=== PATIENT | male | born 1960 | race African-American/Black ===

== ENCOUNTER 2017-02-18 07:07 | Outpatient (CLI) | payer MEDICARE ==
[~2017-02-18] VITALS: Ht 162.6 cm; Wt 61.4 kg
--- NOTE | ~2017-02-18 | DS ---
PATIENT:MICHAEL COON :62 MEDICAL RECORD: [id number] DISCHARGE SUMMARY ADMISSION DATE: 02/18/17 DISCHARGE DATE: 02/19/17 DISCHARGE DIAGNOSES: 1. Angina. 2. Coronary artery disease. 3. Percutaneous transluminal coronary angioplasty stent right coronary artery and left circumflex this admission. HOSPITAL COURSE: Mr. Coon presents with angina, found to have critical disease to the RCA and circumflex, underwent successful PTCA stent of above territories, had an uneventful postop course. He was discharged home with the addition of aspirin and Plavix to his medical regimen. We will follow up with [facility] in 1 month. TRANSINT:[id number] Voice Confirmation ID: [id number] DOCUMENT ID: [id number] JENNIFER FOY MD CC: [id number] DICTATION DATE: 02/19/17918 [employer] SALESPERSON: 02/20/17 0056 DEP CLI 02/19/17 [place] [id number] [place] [id number]
--- NOTE | ~2017-02-18 | OP ---
PATIENT NAME: MICHAEL COON MEDICAL RECORD: [id number] :62 LOCATION:D.M2 D.2117 ADMISSION DATE: SURGEON: JENNIFER FOY MD DATE OF OPERATION: 02/19/2017 PROCEDURES: 1. PTCA stent left circumflex. 2. Selective coronary angiography. INDICATIONS: Angina and coronary artery disease. PROCEDURE IN DETAIL: After informed consent was obtained and after detailed explanation of risks, benefits as well as alternative therapies, the patient elected to proceed with angiogram and angioplasty. The left femoral area was prepped and draped in normal sterile fashion. The left femoral artery was cannulated via modified Seldinger technique with placement of 6-Zambian sheath. All catheters exchanged through this sheath. FINDINGS: The left circumflex ramus intermedius is a large vessel with 99% stenosis in the mid vessel. This was addressed with a 2.5 x 26 mm Resolute stent taken to 17 atmospheres. Result was 0% residual stenosis. OVERALL IMPRESSION: Successful percutaneous transluminal coronary angioplasty stent of the left circumflex going from 99% initial stenosis to 0% residual. TRANSINT:[id number] Voice Confirmation ID: [id number] DOCUMENT ID: [id number] JENNIFER FOY MD CC: [id number] DICTATION DATE: 02/19/17919 EXTRUSION FORMER: 02/19/17 1251 REG [facility] [address] [place] [id number]
--- NOTE | ~2017-02-18 | HEMODYNAMI ---
PATIENT:MICHAEL COON MEDICAL RECORD: [id number] : 62 [id number] ADMISSION DATE: 02/18/17 Generatedon:02/19/20179:28 Patient name: MICHAEL COON Patient #: [id number] SSN: : 1960 Date of study: 02/19/2017 Page: Of Hemodynamic Procedure Report Patient Data Patient Demographics Procedure consent was obtained First Name: MICHAEL Gender: Male Last Name: JAYMIE : 1960 [facility] Initial: NALINI Age: 57 year(s) Patient #: [id number] Race: Black Additional ID: [id number] Contact details [address]: [address] [place] [address] State: [place] City: [place] Zip code: [address] Past Medical History Performed procedures and imaging results Date Procedure Procedure Results Comments 01/30/2017 Stress testing Positive->Intermediate Inferior with SPECT MPI risk apically. History of disease Date Diagnosis Comments Renal failure->Dialysis Allergies: No known allergies Admission Admission Data Admission Date: 02/18/2017 Admission Time: 7:07 Room #: D.2117 Height (in.): 64 BSA: 1.67 (m2) Height (cm.): 162.56 BMI: 23.69 (kg/m2) Weight (lbs.): 138 Weight (kg.): 62.6 Lab Results Lab Result Date: 02/18/2017 Lab Result Time: 0:00 Biochemistry Name Units Result Min Max BUN mg/dl 26 --(----)-* 7 18 Creatinine mg/dl 9 --(----)-* 0.6 1.3 CBC Name Units Result Min Max Hematocrit % 36.4 *-(----)-- 42 54 Hemoglobin g/dl 11.1 *-(----)-- 13.5 17.5 Procedure Procedure Types Cath Procedure PCI Procedure Coronary Stent Initial Miscellaneous Procedures Moderate Sedation up to 15 minutes Procedure Description Procedure Date Procedure Date: 02/19/2017 Procedure Start Time: 9:10 Procedure End Time: 9:27 Procedure Staff Name Function Gabriel Moore MD Performing Physician Christian Pradhan RT Scrub Dimple Ruiz RN Nurse Kirk Kearney RT Monitor Procedure Data Cath Procedure Fluoroscopy Diagnostic fluoroscopy Total fluoroscopy Time: 2.8 time: 2.8 min min Diagnostic fluoroscopy Total fluoroscopy dose: 387 dose: 387 mGy mGy Contrast Material Contrast Material Type Amount (ml) Isovue 300 68 Entry Location Entry Primary Successful Side Size Upsize Upsize Entry Closure Succes sful Closure Location (Fr) 1 (Fr) 2 (Fr) Remarks Device Remarks Femoral Left 6 Fr Exoseal artery Short Estimated blood loss: 10 ml Procedure Complications No complications Procedure Medications Medication Administration Route Dosage Oxygen NC 2 l/min Heparin Flush Bag added to field 2 bags (1000units/500ml NS) Lidocaine 2% added to field 20 Zofran I.V. 4 mg Heparin Bolus I.V. 4000 units Versed I.V. 1 mg Fentanyl I.V. 50 mcg Versed I.V. 1 mg Fentanyl I.V. 50 mcg Hemodynamics Rest BSA: 1.67 (m2) HGB: 11.1 (g/dl) O2 Consumption: Estimated: 216.41 (ml/min) O2 Co nsumption indexed: Estimated:129.59 (ml/min/m) Heart Rate: 100 (bpm) Snapshots Pre Cath Intra NCS Post Cath Vital Signs Time Heart Resp SPO2 etCO2 QE5ntgi NIBP (mmHg) Rhythm Pain Sedation Rate (ipm) (%) (mmHg) (mmHg) Status Level (bpm) 8:52:10 92 27 100 0 0 96/86(90) NSR 0 (11) 10(A) , No pain 8:56:16 88 14 100 0 0 98/76(94) NSR 0 (11) 10(A) , No pain 9:01:15 93 19 100 0 0 Measuring NSR 0 (11) 10(A) , No pain 9:01:56 81 16 100 0 0 120/72(105) NSR 0 (11) 10(A) , No pain 9:05:56 93 17 100 0 0 126/96(111) NSR 0 (11) 10(A) , No pain 9:10:55 89 16 100 0 0 Measuring NSR 0 (11) 10(A) , No pain 9:11:19 80 18 100 0 0 179/85(130) NSR 0 (11) 9(A) , No pain 9:15:42 78 16 97 0 0 124/43(86) NSR 0 (11) 9(A) , No pain 9:20:40 91 16 100 0 0 Measuring NSR 0 (11) 10(A) , No pain 9:21:42 76 23 100 0 0 162/45(106) NSR 0 (11) 10(A) , No pain 9:26:14 81 12 0 0 150/53(107) NSR 0 (11) 10(A) , No pain Medications Time Medication Route Dose Verified Delivered Reason Notes Effectiveness by by 8:51:03 Oxygen NC 2 Gabriel Dimple Per physician l/min Teresa Ruiz RN 8:51:16 Heparin Flush added 2 Gabriel Gabriel used for Bag to bags Teresa Moore MD procedure (1000units/500ml field NS) 8:51:25 Lidocaine 2% added 20ml Gabriel Gabriel used for to vial Teresa Moore MD procedure field 8:51:33 Zofran I.V. 4 mg Gabriel Dimple Per physician Teresa Ruiz RN 9:07:22 Versed I.V. 1 mg Gabriel Dimple for anxiety Teresa Ruzi RN 9:07:36 Fentanyl I.V. 50 Gabriel Dimple for sedation mcg Teresa Ruiz RN 9:10:00 Versed I.V. 1 mg Gabriel Dimple for sedation Teresa Ruiz RN 9:10:32 Fentanyl I.V. 50 Gabriel Dimple for sedation mcg Teresa Ruiz RN 9:11:07 Heparin Bolus I.V. 4000 Gabriel Dipmle for dose units Teresa Ruiz RN anticoagulation verified with dr moore Procedure Log Time Note 8:26:52 Patient Height : 64 cm 8:26:58 Time tracking: Regular hours 8:27:02 Plan of Care:Hemodynamics will remain stable., Cardiac rhythm will remain stable., Comfort level will be maintained., Respiratory function will remain adequate., Patient/ family verbilizes understanding of procedure., Procedure tolerated without complication., Recovers from procedure without complications.. 8:30:51 Christian Pradhan RT(R) sent for patient. Start room use. 8:30:52 Patient Weight : 138 kg 8:41:57 Patient received from PCU to CCL 1 Alert and oriented. Tansferred to table in Supine position. 8:41:58 Warm blankets applied, and tamara hugger turned on for patient comfort. 8:41:59 Correct patient and procedure confirmed by team. 8:42:00 Signed procedure consent form obtained from patient. 8:42:01 ECG and BP/O2 sat monitors applied to patient. 8:50:54 Vital chart was started 8:51:03 Oxygen 2 l/min NC was administered by Dimple Ruiz RN; Per physician; 8:51:16 Heparin Flush Bag (1000units/500ml NS) 2 bags added to field was administered by Gabriel Moore MD; used for procedure; 8:51:25 Lidocaine 2% 20ml vial added to field was administered by Gabriel Moore MD; used for procedure; 8:51:33 Zofran 4 mg I.V. was administered by Dimple Ruiz RN; Per physician; 8:57:58 Baseline sample Acquired. 8:58:10 Rhythm: sinus tachycardia 8:58:28 H&P Date Dictated: 01/22/2017 Within 30 days and on chart.. 8:58:29 Pre-procedure instructions explained to patient. 8:58:30 Pre-op teaching completed and patient verbalized understanding. 8:58:36 Family unavailable. 8:58:45 Patient allergic to No known allergies 8:58:47 Is the patient allergic to Iodine/contrast media? No. 8:58:49 Is patient on blood thinner?Yes 8:58:52 ACC The patient was administered the following blood thiners within the last 24 hours: ACCPlavix 8:59:31 Patient diabetic? Yes. 8:59:33 If diabetic: On Metformin? No 8:59:35 Previous problem with sedation/anesthesia? No ? 8:59:36 Snore? Yes 8:59:37 Sleep apnea? Yes 8:59:38 Deviated septum? No 8:59:39 Opens mouth fully? Yes 8:59:40 Sticks out tongue? Yes 8:59:42 Airway obstruction? No ? 8:59:48 Dentures? No ? 8:59:54 Pre procedure: left dorsailis pedis pulse 1+ Palpable, but thready & weak; easily obliterated 8:59:57 Patient pain scale 0/10 ?. 9:00:02 IV patent on arrival in left forearm with 0.9% NaCl at [facility]. 9:00:37 Lab Result : Creatinine 9 mg/dl 9:00:37 Lab Result : BUN 26 mg/dl 9:00:37 Lab Result : Hemoglobin 11.1 g/dl 9:00:37 Lab Result : Hematocrit 36.4 % 9:00:40 Lab results completed and on chart. 9:00:47 Left groin area was prepped with chlora-prep and draped in sterile fashion 9:00:49 Alarms reviewed by R. N. 9:00:50 Sharps counted by scrub and verified by R.N. 9:00:56 Use device set Femoral PCI 9:00:57 Tegaderm 4 x 4 opened to sterile field. 9:00:58 Acist Manifold opened to sterile field. 9:00:59 Acist Syringe opened to sterile field. 9:01:00 Acist Hand Control opened to sterile field. 9:01:00 Bag Decanter opened to sterile field. 9:01:01 Medline Cath Pack opened to sterile field. 9:01:01 Terumo 6Fr [place] Sheath opened to sterile field. 9:01:04 St Vin 260cm J .035 wire opened to sterile field. 9:01:04 Merit BasixCompak Inflation Kit opened to sterile field. 9:01:10 Trimble Whisper J 300cm 0.014 guide wire opened to sterile field. 9:06:56 Zero performed for pressure channel P1 9:07:08 --------ALL STOP TIME OUT------ 9:07:09 Final Timeout: patient, procedure, and site verified with staff and physician. All members of the team are in agreement. 9:07:11 Left groin site verified by team. 9:07:15 Physical assessment completed. ASA score P 2 - A patient with mild systemic disease as per Gabriel Moore MD. 9:07:21 Sedation plan: IV Moderate Sedation Versed, Fentanyl 9:07:22 Versed 1 mg I.V. was administered by Dimple Ruiz RN; for anxiety; 9:07:36 Fentanyl 50 mcg I.V. was administered by Dimple Ruiz RN; for sedation; 9:10:00 Versed 1 mg I.V. was administered by Dimple Ruiz RN; for sedation; 9:10:32 Fentanyl 50 mcg I.V. was administered by Dimple Ruiz RN; for sedation; 9:10:33 Cordis 6FR XBLAD 4.0 guide catheter opened to sterile field. ::38 Procedure started. ::38 Full Disclosure recording started 9::42 Local anesthetic to left femerol artery with Lidocaine 2% by Gabriel Moore MD.INITIAL ACCESS ONLY 9:11:06 A 6 Fr Short sheath was inserted into the Left Femoral artery 9:11:07 Heparin Bolus 4000 units I.V. was administered by Dimple Ruiz RN; for anticoagulation; dose verified with dr moore 9:11:18 6 Fr XBLAD 4 guide catheter was inserted over the wire 9:12:58 Whisper wire advanced. 9:13:33 Wire advanced across lesion. 9:13:38 Inflation number: 1 A [place] Molcure Stone 2.5 X 15 balloon was prepped and advanced across the Mid CX, then inflated to 13 BRANDEE for 0:10 (min:sec). 9:13:50 Multiple inflations made at 13 Atms. 9:14:09 Balloon removed over the wire. 9:15:52 Inflation Number: 2 A Medtronic Resolute 2.5 X 26 stent was prepped and advanced across the Mid CX. The stent was deployed at 17 BRANDEE for 0:10 (min:sec). 9:16:12 Stent catheter was removed intact over wire. 9:16:13 Wire removed. 9:16:13 Guide catheter removed. 9:16:22 Cordis 6Fr Exoseal opened to sterile field. 9:17:39 Sheath removed intact; hemostasis achieved with Exoseal to the Left Femoral artery. 9::42 Procedure ended.(Physican Out) 9:19:16 Fluoroscopy time 02.80 minutes. 9:19:19 Fluoroscopy dose: 387 mGy 9:19: Flurop Dose total: 387 9:19:24 Contrast amount:Isovue 300 68ml. 9:19: Sharps counted by scrub and verified by R.N. 9:19:31 Post-op/insertion site Left Femoral artery dressed using a 4 x 4 and Tegaderm. 9:19:43 Post left femerol artery:bleeding 9:20:02 Femstop placed over the left femerol artery at 150 mmHg. Hemostasis achieved. 9:20:15 St Vin Femstop Arch Gold opened to sterile field. 9:24:13 Post-procedure physical assessment completed. ASA score P 2 - A patient with mild systemic disease as per Gabriel Moore MD. 9:24:16 Post procedure rhythm: unchanged. 9:24:19 Estimated blood loss: 10 ml 9:24:21 Post procedure instruction explained to patient.Patient verbalizes understanding. 9:24:22 Patient needs reinforcement of post procedure teaching. 9:24:29 Procedure type changed to Cath procedure, PCI procedure, Coronary Stent Initial, Miscellaneous Procedures, Moderate Sedation up to 15 minutes 9:24:32 Procedure Complication : No complications 9:25:23 Procedure and supply charges have been captured, reviewed, submitted and are correct. 9:27:16 Vital chart was stopped 9:27:17 See physician's report for complete and final results. 9:27:21 Report given to PCU. 9:27:24 Patient transfered to PCU with Bed. 9:27:27 Procedure ended. 9:27:27 Full Disclosure recording stopped 9:27:44 End room use (Document Last) Intervention Summary Intervention Notes Time ActionType Lesion and Equipment Action# Pressure Duration Attributes Used 9:13:38 Inflate Mid CX [place] 1 13 00:10 balloon Sci Stone 2.5 X 15 balloon 9:15:52 Place stent Mid CX Medtronic 2 17 00:10 Resolute 2.5 X 26 stent Device Usage Item Name Manufacture Quantity Catalog Number Hospital Part Current Mini [facility] Lot# / Charge Number Stock Stock Serial# Code Tegaderm 4 3M 1 [id number] 5 x 4 Acist Acist 1 75350 477874 150312 100769 5 Manifold Medical Systems Inc Acist Acist 1 18177 297168 524836 905921 20 Syringe Medical Systems Inc Acist Hand Acist 1 45935 761173 650593 295884 5 Control Medical Systems Inc Bag Microtek 1 2002S 314866 54703 217776 5 AutoShag. Medline Cardinal 1 [id number] 793703 89076 434915 5 Cath Pack Health Terumo 6Fr Terumo 1 [id number] 596730 756986 885374 [address] [place] [address] Vin St Vin 1 439161 386639 729936 877010 30 260cm J .035 wire Merit Merit 1 [id number] 289563 558580 123266 15 BasixCompak Medical Inflation Kit Trimble Trimble 1 [id number] 838672 712361 390757 5 Whisper J Vascular 300cm 0.014 guide wire Cordis 6FR Cardinal 1 [id number] 263203 139022 866346 3 XBLAD 4.0 Health guide catheter [place] Sci [place] 1 [id number] 207768 195319 075292 1 CDNetworks 2.5 X 15 balloon Medtronic Medtronic 1 [id number] 656038 687488 0 [id number] Resolute 2.5 X 26 stent Cordis 6Fr Cardinal 1 [id number] 166037 368894 656294 [address] St Vin 1 [id number] 087869 902103 958790 5 Femstop Arch Gold Signature Audit [place] Stage Time Signature Unsigned Intra-Procedure 02/19/2017 Kirk Kearney 9:27:59 AM RT(R) Signatures Monitor : Kirk Kearney RT Signature : Date : Time : [place] [id number] [place] [address]
--- NOTE | ~2017-02-18 | HEMODYNAMI ---
PATIENT:MICHAEL COON MEDICAL RECORD: [id number] : 62 LOCATION:[facility] ADMISSION DATE: 02/18/17 Generatedon:02/18/201711:19 Patient name: MICHAEL COON Patient #: [id number] SSN: : 1960 Date of study: 02/18/2017 Page: Of Hemodynamic Procedure Report Patient Data Patient Demographics Procedure consent was obtained First Name: MICHAEL Gender: Male Last Name: JAYMIE : 1960 [facility] Initial: NALINI Age: 57 year(s) Patient #: [id number] Race: Black Additional ID: [id number] Contact details [address]: [address] [place] [address] State: [place] City: [place] Zip code: [address] Past Medical History Performed procedures and imaging results Date Procedure Procedure Results Comments 01/30/2017 Stress testing Positive->Intermediate Inferior with SPECT MPI risk apically. History of disease Date Diagnosis Comments Renal failure->Dialysis Allergies: No known allergies Admission Admission Data Admission Date: 02/18/2017 Admission Time: 7:07 Height (in.): 64 BSA: 1.67 (m2) Height (cm.): 162.56 BMI: 23.69 (kg/m2) Weight (lbs.): 138 Weight (kg.): 62.6 Procedure Procedure Types Cath Procedure Diagnostic Procedure [facility] w/Coronaries PCI Procedure Coronary Stent Initial Miscellaneous Procedures Moderate Sedation up to 30 minutes Procedure Description Procedure Date Procedure Date: 02/18/2017 Procedure Start Time: 10:42 Procedure End Time: 11:18 Procedure Staff Name Function Gabriel Moore MD Performing Physician Candy Sheikh RT Scrub Eloy Groves RN Nurse Kong Camara RT Monitor Procedure Data Cath Procedure Fluoroscopy Diagnostic fluoroscopy Total fluoroscopy Time: 6.7 time: 6.7 min min Diagnostic fluoroscopy Total fluoroscopy dose: dose: 296.38 mGy 296.38 mGy Contrast Material Contrast Material Type Amount (ml) Isovue 300 112 Entry Location Entry Primary Successful Side Size Upsize Upsize Entry Closure Succes sful Closure Location (Fr) 1 (Fr) 2 (Fr) Remarks Device Remarks Femoral Right 5 Fr 6 Fr 7 Fr Exoseal artery Short Short Estimated blood loss: 10 ml Diagnostic catheters Device Type Used For End Catheter Placement Medtronic Dexterity 5Fr Procedure Pigtail catheter (NO CHARGE) Medtronic Dexterity 5Fr Procedure JL 4.0 catheter (NO CHARGE) Medtronic Dexterity 5Fr Procedure 3DRC catheter (NO CHARGE) Procedure Medications Medication Administration Route Dosage Oxygen NC 2 l/min Heparin Flush Bag added to field 2 bags (1000units/500ml NS) 0.9% NaCl I.V. 100 ml/hr Fentanyl I.V. 50 mcg Versed I.V. 1 mg Fentanyl I.V. 50 mcg Versed I.V. 1 mg Heparin Bolus I.V. 4000 units Integrilin (Bolus I.V. 5.6 ml 2mg/ml) Integrilin (Bolus wasted 4.4 ml 2mg/ml) Hemodynamics Rest BSA: 1.67 (m2) O2 Consumption: Estimated: 195.42 (ml/min) O2 Consumption indexed : Estimated:117.02 (ml/min/m) Heart Rate: 67 (bpm) Pressure Samples Time Site Value (mmHg) Purpose Heart Use Rate(bpm) 10:46 AO 72/20(23) Snapshot 56 10:46 AO 110/61(82) Snapshot 67 10:49 AO 118/51(75) Snapshot 66 10:52 AO 107/23(54) Snapshot 71 10:55 AO 113/34(51) Snapshot 69 10:57 AO 97/48(62) Snapshot 68 10:58 AO 95/37(56) Snapshot 74 10:58 AO 113/53(75) Snapshot 69 10:59 AO 128/54(77) Snapshot 77 11:00 AO 109/58(78) Snapshot 68 Snapshots Pre Cath Intra NCS Post Cath Vital Signs Time Heart Resp SPO2 NIBP (mmHg) Rhythm Pain Sedation Rate (ipm) (%) Status Level (bpm) 10:20:54 63 18 99 126/77(94) NSR 0 (11) 10(A) , No pain 10:33:28 69 20 99 130/114(127) NSR 0 (11) 10(A) , No pain 10:51:33 66 18 100 119/25(83) NSR 0 (11) 9(A) , No pain 10:57:34 73 18 100 113/53(75) NSR 0 (11) 9(A) , No pain 11:05:43 57 19 100 107/81(100) NSR 0 (11) 9(A) , No pain 11:10:43 77 13 100 Measuring NSR 0 (11) 9(A) , No pain 11:12:06 175 15 Time NSR 0 (11) 9(A) Exceeded , No pain 11:16:35 61 8 100 108/75(91) NSR 0 (11) 9(A) , No pain Medications Time Medication Route Dose Verified Delivered Reason Notes Effectiveness by by 10:24:17 Oxygen NC 2 Eloy Eloy Per physician l/min Germain Groves RN RN 10:24:26 Heparin Flush added 2 Eloy Eloy used for Bag to bags Germain Groves RN procedure (1000units/500ml field RN NS) 10:24:36 0.9% NaCl I.V. 100 Eloy Eloy Per physician ml/hr Germain Groves RN RN 10:36:34 Fentanyl I.V. 50 Eloy Eloy for sedation mcg Germain Groves RN RN 10:36:43 Versed I.V. 1 mg Eloy Eloy for sedation Germain Groves RN RN 10:44:39 Fentanyl I.V. 50 Eloy Eloy for sedation mcg Germain Groves RN RN 10:44:41 Versed I.V. 1 mg Eloy Eloy for sedation Germain Groves RN RN 10:50:39 Heparin Bolus I.V. 4000 Eloy Eloy for units Germain Groves RN anticoagulation RN 10:50:55 Integrilin I.V. 5.6 Eloy Eloy for (Bolus 2mg/ml) ml Germain Groves RN antiplatelet RN therapy 10:51:06 Integrilin wasted 4.4 Eloy Eloy for (Bolus 2mg/ml) ml Germain Groves RN antiplatelet RN therapy Procedure Log Time Note 10:01:09 Eloy Groves RN sent for patient. Start room use. 10:07:10 Time tracking: Regular hours 10:07:13 Plan of Care:Hemodynamics will remain stable., Cardiac rhythm will remain stable., Comfort level will be maintained., Respiratory function will remain adequate., Patient/ family verbilizes understanding of procedure., Procedure tolerated without complication., Recovers from procedure without complications.. 10:11:25 Patient Height : 162.56 cm 10:11:48 Patient Weight : 62.6 kg 10:12:12 Patient received from Pre/Post Procedure Room to CCL 3 Alert and oriented. Tansferred to table in Supine position. 10:12:13 Warm blankets applied, and tamara hugger turned on for patient comfort. 10:12:14 Correct patient and procedure confirmed by team. 10:12:15 Signed procedure consent form obtained from patient. 10:12:16 ECG and BP/O2 sat monitors applied to patient. 10:12:24 H&P Date Dictated: 01/22/2017 Within 30 days and on chart., H&P Addendum completed by physician on day of procedure. (MUST COMPLETE FOR ALL OUTPATIENTS). 10:12:24 Pre-procedure instructions explained to patient. 10:12:25 Pre-op teaching completed and patient verbalized understanding. 10:12:26 Family in waiting room. 10:12:28 Patient NPO since Midnight. 10:12:32 Patient allergic to No known allergies 10:12:34 Is the patient allergic to Iodine/contrast media? No. 10:19:26 Vital chart was started 10:21:46 Baseline sample Acquired. 10:21:49 Rhythm: sinus rhythm 10:21:50 Full Disclosure recording started 10:21:52 Is patient on blood thinner?No 10:21:53 Patient diabetic? Yes. 10:21:54 If diabetic: On Metformin? No 10:24:17 Oxygen 2 l/min NC was administered by Eloy Groves RN; Per physician; 10:24:26 Heparin Flush Bag (1000units/500ml NS) 2 bags added to field was administered by Eloy Groves RN; used for procedure; 10:24:36 0.9% NaCl 100 ml/hr I.V. was administered by Eloy Groves RN; Per physician; 10:27:47 Vital chart was stopped 10:27:48 Vital chart was started 10:28:02 Previous problem with sedation/anesthesia? No ? 10:28:02 Snore? Yes 10:28:03 Sleep apnea? Yes 10:28:04 Deviated septum? No 10:28:05 Opens mouth fully? Yes 10:28:06 Sticks out tongue? Yes 10:28:07 Airway obstruction? No ? 10:28:09 Dentures? No ? 10:28:13 Pre procedure: right dorsailis pedis pulse 1+ Palpable, but thready & weak; easily obliterated 10:28:16 Patient pain scale 0/10 ?. 10:28:30 IV patent on arrival in left forearm with 0.9% NaCl at [facility]. 10:29:46 Lab results completed and on chart. 10::49 Right groin area was prepped with chlora-prep and draped in sterile fashion 10::50 Alarms reviewed by R. N. 10::51 Sharps counted by scrub and verified by R.N. 10:29:54 Use device set Femoral Dx 10:29:55 Tegaderm 4 x 4 opened to sterile field. 10:29:56 Acist Manifold opened to sterile field. 10:29:56 Acist Hand Control opened to sterile field. 10:29:57 Acist Syringe opened to sterile field. 10:29:58 Bag Decanter opened to sterile field. 10:29:58 Medline Cath Pack opened to sterile field. 10:29:59 Terumo 5Fr [place] Sheath opened to sterile field. 10:29:59 St Vin 260cm J .035 wire opened to sterile field. 10:31:51 Vital chart was stopped 10::53 Vital chart was started 10:34:25 Zero performed for pressure channel P1 10:36:23 Physician arrived 10:36:23 --------ALL STOP TIME OUT------ 10:36:23 Final Timeout: patient, procedure, and site verified with staff and physician. All members of the team are in agreement. 10:36:25 Right groin site verified by team. 10:36:27 Physical assessment completed. ASA score P 2 - A patient with mild systemic disease as per Gabriel Moore MD. 10:36:32 Sedation plan: IV Moderate Sedation Versed, Fentanyl 10:36:34 Fentanyl 50 mcg I.V. was administered by Eloy Groves RN; for sedation; 10:36:43 Versed 1 mg I.V. was administered by Eloy Groves RN; for sedation; 10:41:56 Procedure started. 10:42:00 Local anesthetic to right femoral artery with Lidocaine 2% by Gabriel Moore MD.INITIAL ACCESS ONLY 10:42:16 Zero performed for pressure channel P1 10:42:20 Zero performed for pressure channel P1 10:42:23 Zero performed for pressure channel P1 10:42:25 Zero performed for pressure channel P1 10:42:54 A 5 Fr sheath was inserted into the Right Femoral artery 10:44:35 A Medtronic Dexterity 5Fr Pigtail catheter (NO CHARGE) was advanced over the wire and used for Procedure. 10:44:39 Fentanyl 50 mcg I.V. was administered by Eloy Groves RN; for sedation; 10:44:41 Versed 1 mg I.V. was administered by Eloy Groves RN; for sedation; 10:45:28 LV gram done using MORA 10:45:30 Injector settings: Ml/sec: 10, Volume: 20, 10:45:41 EF : 50 % 10:45:42 Catheter removed. 10:46:08 A Medtronic Dexterity 5Fr JL 4.0 catheter (NO CHARGE) was advanced over the wire and used for Procedure. 10:46:41 Clean PET BasixCompak Inflation Kit opened to sterile field. 10:46:42 Trimble Whisper J 300cm 0.014 guide wire opened to sterile field. 10:46:51 LCA angiography performed. 10:47:37 Catheter removed. 10:48:00 Terumo 6Fr [place] Sheath opened to sterile field. 10:48:18 A Medtronic Dexterity 5Fr 3DRC catheter (NO CHARGE) was advanced over the wire and used for Procedure. 10:48:23 RCA angiography performed. 10:48:28 Catheter removed. 10:49:09 Sheath upsized to a 6 Fr Short. 10:49:56 Medtronic Launcher 6Fr AR 2.0 SH guide catheter opened to sterile field. 10:50:04 6 Fr AR 2 SH guide catheter was inserted over the wire 10:50:07 Akademosisper wire advanced. 10:50:39 Heparin Bolus 4000 units I.V. was administered by Eloy Groves RN; for anticoagulation; 10:50:52 Wire advanced across lesion. 10:50:55 Integrilin (Bolus 2mg/ml) 5.6 ml I.V. was administered by Eloy Groves RN; for antiplatelet therapy; 10:51:06 Integrilin (Bolus 2mg/ml) 4.4 ml wasted was administered by Eloy Groves RN; for antiplatelet therapy; 10:52:00 The Promus Premier OTW 3.0 x 28 stent was advanced then removed because of failure to cross lesion 10:52:03 Wire removed. 10:52:10 Guide Catheter removed. unable to get back-up support 10:52:18 Terumo 7Fr [place] Sheath opened to sterile field. 10:52:27 Medtronic Launcher 7Fr AR 2.0 SH guide catheter opened to sterile field. 10:52:35 Sheath upsized to a 7 Fr Short. 10:52:42 7 Fr AR 2 SH guide catheter was inserted over the wire 10:53:07 Guide Catheter removed. unable to get back-up support 10:53:14 Arrow 7Fr 45cm Sheath opened to sterile field. 10:53:45 Upsized to a 7 Fr. 45 cm Arrow sheath. 10:55:44 Marion Sci Choice PT Extra Support J 300cm .014 gu opened to sterile field. 10:55:56 Medtronic Launcher 7Fr AR 2.0 SH guide catheter opened to sterile field. 10:56:30 7 Fr AR 2 SH guide catheter was inserted over the wire 10:56:48 pt ES wire advanced. 10:57:06 Wire advanced across lesion. 10:57:09 Inflation number: 1 A Marion Sci Morovis 3.0 X 20 balloon was prepped and advanced across the Mid RCA, then inflated to 13 BRANDEE for 0:10 (min:sec). 10:57:21 Inflation number: 2 The Marion Sci Morovis 3.0 X 20 balloon was reinflated across the Mid RCA, to 17 BRANDEE for 0:10 (min:sec). 10:57:31 Inflation number: 3 The Marion Sci Morovis 3.0 X 20 balloon was reinflated across the Mid RCA, to 17 BRANDEE for 0:10 (min:sec). 10:58:05 Balloon removed over the wire. 10:59:04 Inflation Number: 4 A Promus Premier OTW 3.0 x 28 stent was prepped and advanced across the Mid RCA. The stent was deployed at 17 BRANDEE for 0:10 (min:sec). 11:00:17 Inflation number: 5 The stent balloon was then re-inflated across the Mid RCA to 21 BRANDEE for 0:10 (min:sec). 11:00:53 Stent catheter was removed intact over wire. 11:01:19 Wire removed. 11:01:19 Guide catheter removed. 11:01:37 Sheath downsized to a 7 Fr. Short. 11:01:51 Cordis 7Fr Exoseal opened to sterile field. 11:03:19 Stent catheter was removed intact over wire. 11:03:20 Wire removed. 11:03:20 Guide catheter removed. 11:04:02 Sheath removed intact; hemostasis achieved with Exoseal to the Right Femoral artery. 11:04:03 Procedure ended.(Physican Out) 11:04:52 Fluoroscopy time 06.70 minutes. 11:05:26 Fluoroscopy dose: 296.38 mGy 11:05:26 Flurop Dose total: 296.38 11:05:32 Contrast amount:Isovue 300 112ml. 11:05:33 Sharps counted by scrub and verified by R.N. 11:05:36 Insertion/operative site no bleeding no hematoma. 11:05:38 Post-op/insertion site Right Femoral artery dressed using a 4 x 4 and Tegaderm. 11:05:42 Post right femoral artery:stable, soft, clean and dry 11:05:43 Post Procedure Pulses reassessed and unchanged 11:05:45 Post-procedure physical assessment completed. ASA score P 2 - A patient with mild systemic disease as per Gabriel Moore MD. 11:05:47 Post procedure rhythm: unchanged. 11:05:57 Estimated blood loss: 10 ml 11:05:59 Post procedure instruction explained to patient.Patient verbalizes understanding. 11:05:59 Patient needs reinforcement of post procedure teaching. 11:06:49 Procedure type changed to Cath procedure, Diagnostic procedure, LHC, LHC w/Coronaries, PCI procedure, Coronary Stent Initial, Miscellaneous Procedures, Moderate Sedation up to 30 minutes 11:06:50 Procedure and supply charges have been captured, reviewed, submitted and are correct. 11:13:11 Femstop placed over the right femoral artery at 135 mmHg. Hemostasis achieved. 11:18:37 See physician's report for complete and final results. 11:18:38 Report given to Pre/Post Procedure Room. 11:18:40 Patient transfered to Pre/Post Procedure Room with Stretcher. 11:18:43 Procedure ended. 11:18:43 Full Disclosure recording stopped 11:19:02 End room use (Document Last) 11:19:30 Vital chart was stopped Intervention Summary Intervention Notes Time ActionType Lesion and Equipment Action# Pressure Duration Attributes Used 10:52:00 Discard Promus Stent Premier OTW 3.0 x 28 stent 10:57:09 Inflate Mid RCA Marion 1 13 00:10 balloon Sci Morovis 3.0 X 20 balloon 10:57:21 Reinflate Mid RCA Marion 2 17 00:10 balloon Sci Morovis 3.0 X 20 balloon 10:57:31 Reinflate Mid RCA Marion 3 17 00:10 balloon Sci Morovis 3.0 X 20 balloon 10:59:04 Place stent Mid RCA Promus 4 17 00:10 Premier OTW 3.0 x 28 stent 11:00:17 Reinflate Mid RCA Promus 5 21 00:10 stent Premier balloon OTW 3.0 x 28 stent Device Usage Item Name Manufacture Quantity Catalog Number Hospital Part Current Mini [facility] Lot# / Charge Number Stock Stock Serial# Code Tegade 4 1 [id number] [id number] [id number] 5 x 4 Acist Acist 1 74310 909963 480447 545594 5 Manifold Medical Systems Inc Acist Hand Acist 1 60643 782174 322964 204187 5 Control Medical Systems Inc Acist Acist 1 69093 533117 378453 479418 20 Syringe Medical Systems Inc Bag Microtek 1 2002S 087287 93632 675130 5 DecNudipay Mobile Payment Medical Inc. Medline Cardinal 1 [id number] 554354 24640 582666 5 Cath Pack Health Terumo 5Fr Terumo 1 [id number] 749466 576429 985330 [address] Vin St Vin 1 [id number] 212916 110348 703625 30 260cm J .035 wire Medtronic Medtronic 1 [id number] 492399 388026 5 Dexterity 5Fr Pigtail catheter (NO CHARGE) Medtronic Medtronic 1 [id number] 521384 839231 5 Dexterity 5Fr JL 4.0 catheter (NO CHARGE) Merit Merit 1 [id number] 433772 263205 719821 15 BasPearl Therapeutics Medical Inflation Kit Trimble Trimble 1 [id number] 889375 375479 942007 5 Whisper J Vascular 300cm 0.014 guide wire Medtronic Medtronic 1 [id number] 122649 165559 5 Dexterity 5Fr 3DRC catheter (NO CHARGE) Medtronic Medtronic 1 [id number] 284997 81291 052137 1 Launcher 6Fr AR 2.0 SH guide catheter Promus Marion 1 [id number] 841178 133551 5 [id number] Premier OTW Scientific 3.0 x 28 stent Terumo 7Fr Terumo 1 [id number] 011904 942979 761218 5 [place] Sheath Medtronic Medtronic 2 [id number] 508068 978121 756883 0 Launcher 7Fr AR 2.0 SH guide catheter Arrow 7Fr Teleflex 1 [id number] 273990 077097 029373 1 45cm Sheath Marion Sci Marion 1 [id number] 461113 678684 268261 5 Choice PT Scientific Extra Support J 300cm .014 gu Marion Sci Marion 1 [id number] 575675 671738 569539 1 [id number] Zomazz Scientific 3.0 X 20 balloon Terumo 6Fr Terumo 1 [id number] 362789 089363 067507 40 [place] Sheath Cordis 7Fr Cardinal 1 [id number] 712018 020976 901686 5 [facility] Health Signature Audit [place] Stage Time Signature Unsigned Intra-Procedure 02/18/2017 Kong Camara 11:19:22 AM RT(R) Signatures Monitor : Kong Camara RT Signature : Date : Time : [facility] [address] [place] [address]
--- NOTE | ~2017-02-18 | OP ---
PATIENT NAME: MICHAEL COON MEDICAL RECORD: [id number] :62 LOCATION:D.CAT ADMISSION DATE: SURGEON: JENNIFER FOY MD DATE OF OPERATION: 02/18/2017 PROCEDURES: 1. PTCA stent, RCA. 2. Left heart catheterization. 3. Selective coronary angiography. 4. Left ventriculogram. INDICATIONS: Angina and coronary artery disease. PROCEDURE IN DETAIL: After informed consent was obtained and after detailed explanation of risks, benefits as well as alternative therapies, the patient elected to proceed with angiogram and angioplasty. The right femoral area was prepped and draped in normal sterile fashion. The right femoral artery was cannulated via modified Seldinger technique with placement of 7-Honduran sheath. All catheters exchanged through this sheath. FINDINGS: The left ventriculogram was performed in standard 30-degree MORA view, reveals good cardiac wall motion throughout all segments. Overall ejection fraction 70%. SELECTIVE CORONARY ANGIOGRAPHY: 1. Left main showed no significant angiographic disease. 2. Left anterior descending has moderate irregularities, but no flow-limiting stenosis. 3. The left circumflex has a 95% stenosis. 4. The right coronary has a 95% stenosis. PTCA STENT OF THE RIGHT CORONARY: The stent used is a 3.0 x 28 mm Promus. Result was 0% residual stenosis. OVERALL IMPRESSION: Successful percutaneous transluminal coronary angioplasty stent of the right coronary artery going from 95% initial stenosis to 0% residual. PLAN: PTCA stent of the left circumflex in the a.m. TRANSINT:[id number] Voice Confirmation ID: [id number] DOCUMENT ID: [id number] JENNIFER FOY MD CC: [id number] DICTATION DATE: 02/18/17 1108 PAPIER MACHE' MOLDER: 02/18/17 1155 [facility] [address] [place] [address]
[~2017-02-18 07:07] MED LIST: AMBIEN10 MG PO; MIDODRINE HCL5 MG PO; NITROQUICK0.4 MG SL; OMEPRAZOLE40 MG PO; PLAVIX75 MG PO; REGLAN5 MG PO; REQUIP0.5 MG PO; SENSIPAR60 MG PO; TESSALON PERLE100 MG PO; ZANAFLEX4 MG PO
[2017-02-18] MEDS ORDERED: HYDROCODONE-APA1 TAB PO (08:18)
[2017-02-18] MEDS ORDERED: HYDROCODON-ACE1 EAC7 PO (08:18)
[2017-02-18] MEDS ORDERED: FLORINEF 0.1 M0.1 MG PO (08:19)
[2017-02-18 08:24] VITALS: BP 153/51; BMI 23.4
[2017-02-18 10:10] LABS: BASOPHILS 0.2 % (0-2); EOSINOPHILS 2.3 % (0-7); HEMATOCRIT 36.4 % (42.0-54.0); HEMOGLOBIN 11.1 g/dL (13.5-17.5); IMMATURE GRANULOCYTES 0.2 % (0-5); LYMPHOCYTES 32.8 % (15-50); MCH 24.4 pg (26.0-34.0); MCHC 30.5 g/dL (31.0-37.0); MCV 80.2 fL (80.0-100.0); MEAN PLATELET VOLUME 10.2 fL (7.4-10.4); MONOCYTES 7.9 % (2-11); NEUTROPHILS 56.6 % (40-80); PLATELET COUNT 193 10x3/uL (130-400); RBC 4.54 10x6/uL (4.20-6.10); RDW 15.5 % (11.5-14.5); WBC 4.8 10x3/uL (4.8-10.8)
[2017-02-18 10:30] LABS: ANION GAP 14.8 mmol/L (8-16); CALCIUM 10.2 mg/dL (8.5-10.1); CARBON DIOXIDE 28.1 mmol/L (21.0-32.0); POTASSIUM - SERUM 3.9 mmol/L (3.5-5.1)
--- NOTE | 2017-02-18 11:52 | NUR ---
1145-RIGHT GROIN WITH FEMSTOP IN PLACE, MOVING IN BED-INSTRUCTED TO KEEP HEAD DOWN AND RIGHT LEG STRAIGHT-NOT COMPLIANT. C/O PAIN- NEW ORDER.
--- NOTE | 2017-02-18 12:41 | NUR ---
1215-CONTINUES TO MOVE IN THE BED, RIGHT GROIN CDI, NO HEMATOMA OR BLEEDING.
--- NOTE | 2017-02-18 13:00 | NUR ---
[address] WITH PATIENT RESTLESS AND MOVING VSS WITH NOC SANDWICH AND SODA TO BEDSIDE
--- NOTE | 2017-02-18 16:59 | NUR ---
1654-REPORT CALLED TO JENNIFER GARVEY. RIGHT GROIN STABLE, RESTING, TRANSPORT VIA STRETCHER, IV INTACT AND PATENT.
--- NOTE | 2017-02-18 17:27 | NUR ---
recceived pt to room 2116 via stretcher in stable condition from outside laborer pt denies any needs or discomfort at this time drsg to rt groin c/d/i no signs of bleeding vss
--- NOTE | 2017-02-18 19:00 | NUR ---
INITIAL ROUNDS MADE. PT LYING IN BED RESTING WELL WITH EYES CLOSED, AWAKENED EASILY WHEN NAME CALLED. NO NEEDS OR C.O VOICED AT THIS TIME. WILL CONT TO MONITOR.
[2017-02-18 21:48] VITALS: BP 149/34
--- NOTE | 2017-02-18 23:30 | NUR ---
CANDY SPREADER AT BEDSIDE FOR VS. NEEDS ADDRESSED AT THIS TIME. CALL LIGHT IN REACH. WILL CONT TO MONITOR.
[2017-02-19 01:50] VITALS: BP 113/46
[2017-02-19 03:41] VITALS: BP 149/34; Ht 162.6 cm; Wt 61.4 kg
[2017-02-19 05:52] VITALS: BP 137/40
[2017-02-19 08:23] VITALS: BP 113/47
--- NOTE | 2017-02-19 09:03 | NUR ---
PRE-OPS GIVEN. TO ORNAMENTAL METALWORK DESIGNER BY BED.
--- NOTE | 2017-02-19 09:47 | NUR ---
BACK FROM COLOR DEVELOPER. VS WNL. RIGHT GROIN STABLE WITH FEMSTOP INTACT. WILL MONITOR.
--- NOTE | 2017-02-19 09:54 | NUR ---
BACK FROM TRANSPORTATION MAINTENANCE SPECIALIST. VS WNL. LEFT GROIN STABLE WITH FEMSTOP INTACT. WILL MONITOR.
--- NOTE | 2017-02-19 10:45 | NUR ---
LEAVING FOR DIALYSIS BY BED. FEMSTOP ON. VS STABLE. WILL CONT. PLAN OF CARE.
[2017-02-19] MEDS ORDERED: ASPIRIN81 MG PO (13:20)
[2017-02-19] MEDS ORDERED: PLAVIX75 MG PO (13:20)
--- NOTE | 2017-02-19 14:05 | NUR ---
FEMSTOP DCD WITHOUT BLEEDING OR HEMATOMA NOTED. DIALYSIS COMPLETED.
--- NOTE | 2017-02-19 14:56 | NUR ---
IV AND TELEMETRY DCD. DC PLANS GIVEN. UNDERSTANDING VOICED.
--- NOTE | 2017-02-19 15:26 | NUR ---
ESCORTED TO MARCELLE HERNANDEZ W/C.
== END 2017-02-19 15:28 | disposition home or self-care (01) ==
LOC: D.CATH 07:07 → D.MS 17:01 → D.M2 17:19 → D.CATH 02-19 15:28
PROVIDERS: Internal Medicine Interventional Cardiology
DX: I25.119 Atherosclerotic heart disease of native coronary artery with unspecified angina pectoris (principal); I21.4 Non-ST elevation (NSTEMI) myocardial infarction; N18.6 End stage renal disease; Z99.2 Dependence on renal dialysis; I95.89 Other hypotension; I69.359 Hemiplegia and hemiparesis following cerebral infarction affecting unspecified side
CPT/HCPCS: 93458; C9600 ×2

== ENCOUNTER 2017-08-19 05:22 | Day surgery (SDC) | payer MEDICARE ==
[2017-08-18 14:00] LABS: BASOPHILS 0.2 % (0-2); EOSINOPHILS 0.8 % (0-7); HEMATOCRIT 38.3 % (42.0-54.0); HEMOGLOBIN 11.8 g/dL (13.5-17.5); IMMATURE GRANULOCYTES 0.2 % (0-5); LYMPHOCYTES 22.6 % (15-50); MCHC 30.8 g/dL (31.0-37.0); MCV 84.5 fL (80.0-100.0); MEAN PLATELET VOLUME 9.8 fL (7.4-10.4); MONOCYTES 8.7 % (2-11); NEUTROPHILS 67.5 % (40-80); PLATELET COUNT 179 10x3/uL (130-400); RBC 4.53 10x6/uL (4.20-6.10); RDW 15.7 % (11.5-14.5); WBC 6.2 10x3/uL (4.8-10.8)
[2017-08-18 14:21] LABS: ANION GAP 15.1 mmol/L (8-16); CALCIUM 9.5 mg/dL (8.5-10.1); CARBON DIOXIDE 28.8 mmol/L (21.0-32.0); CREATININE - SERUM 6.5 mg/dL (0.6-1.3); POTASSIUM - SERUM 3.9 mmol/L (3.5-5.1)
[2017-08-18 14:30] LABS: APTT 30.6 SECONDS (22.8-39.4); INR 0.93 (0.85-1.17); PROTIME 12.3 SECONDS (11.6-15.0)
[~2017-08-19 05:22] MED LIST changes: +ASPIRIN81 MG PO; +FLORINEF 0.1 M0.1 MG PO; +HYDROCODON-ACE1 EAC7 PO; +HYDROCODONE-APA1 TAB PO
[2017-08-19] MEDS ORDERED: RENAGEL800 MG PO (06:26)
[2017-08-19] MEDS ORDERED: REGLAN5 MG PO ×2 (06:57→07:01)
[2017-08-19] MEDS ORDERED: MIDODRINE HCL5 MG PO (06:58)
[2017-08-19] MEDS ORDERED: REQUIP0.5 MG PO ×2 (06:59→07:00)
[2017-08-19] MEDS ORDERED: RENA-VITE TABL0.8 MG PO (07:01)
[2017-08-19] MEDS ORDERED: SENSIPAR60 MG PO (07:03)
[2017-08-19 07:29] VITALS: BP 117/62; BMI 22.2
[2017-08-19] MEDS ORDERED: HYDROCODON-ACE1 EAC7 PO (12:15)
--- NOTE | 2017-08-19 13:39 | NUR ---
AFTER ADMINISTRATION OF dDAVP, PATIENT'S BP BEGAN TO DROP, WITH SYSTOLIC DROPPING TO 84. ORDERS RECEIVED FROM DR. MIRZA FOR 10 MG EPHEDRINE WITH 10 ADDITIONAL IF NEEDED. AFTER 20 MINUTES AFTER 2ND DOSE OF 10, BP WAS 87/66. ORDERS TO GIVE AN ADDITIONAL 10 MG WITH 250 ML BOLUS OF FLUIDS. 30 MG EPHEDRINE TOTAL GIVEN.
--- NOTE | 2017-08-19 15:30 | NUR ---
PATIENT LYING IN BED, DROWSY, AROUSABLE, QUICKLY GOES BACK TO SLEEP, DENIES COMPLAINTS
--- NOTE | 2017-08-19 16:55 | NUR ---
PATIENT C/O NAUSEA AND DRY HEAVES. ZOFRAN IV ADMINISTERED
--- NOTE | 2017-08-19 17:40 | NUR ---
PATIENT TOLERATING LIQUIDS, MORE ALERT, RIGHT CHEST HEMOSPLIT FLUSHED WITH HEPARIN PER PROTOCOL AND CAPPED
--- NOTE | 2017-08-20 14:25 | OP ---
PATIENT NAME: MICHAEL COON MEDICAL RECORD: [id number] :62 LOCATION:[facility] ADMISSION DATE: SURGEON: RICARDO GASPAR MD DATE OF OPERATION: 08/19/2017 PREOPERATIVE DIAGNOSIS: Other mechanical complication of surgically created right arm AV fistula with inability to access an adequate length of serviceable translocated basilic vein. POSTOPERATIVE DIAGNOSIS: Other mechanical complication of surgically created right arm AV fistula with inability to access an adequate length of serviceable translocated basilic vein. OPERATION PERFORMED: Fistulogram followed by implantation of a PTFE Propaten graft from the [place]-anastomotic basilic vein just proximal to the previously applied restricting band tunneled upwards to the proximal basilic vein in the axilla and ligation of the old fistula. SURGEON: Ricardo Gaspar MD ANESTHESIA: General per PAPER PLATE MACHINE TENDER. REFERRING PHYSICIAN: Dr. Mehta. PREOPERATIVE NOTE: Mr. Coon is a 57-year-old -[place] male with end-stage renal disease, on chronic hemodialysis. He has been on dialysis now for quite a long time with tunneled dialysis catheter. He has had previous access fistulas and grafts failed in the left upper extremity and now has a patent, but not usable right arm brachial translocated basilic vein fistula. He is brought to the operating room with plans to perform a fistulogram and most likely implant a PTFE graft so that he can begin dialysis via a permanent access and have his tunneled dialysis catheter removed in the very near future. DESCRIPTION OF PROCEDURE: Under anesthesia in supine position, the patient was prepped and draped in sterile manner. The fistula was accessed with ultrasound guidance and micropuncture technique and contrast injected, which revealed a nice fistula with filling of both the brachial and basilic veins with several large communicating veins, which were intact, the vein having been really and adequately mobilized in the upper 1/2 of the arm with proximal occlusion, injection of contrast filled retrograde of the fistula. The area of previous PTFE banding was clearly seen and the arterial anastomosis wide open and good flow distally into the forearm was demonstrated. I elected at this point to go ahead with implantation of a graft rather than trying to mobilize the basilic vein further and continued to work on creating a fistula. Seeing the likelihood of success, did not warrant further delay in getting his tunneled catheter out. The old incision was reopened and the distal portion of the upper arm and the Juxta-anastomotic basilic vein with the PTFE band was exposed. The microcatheter was removed and hemostasis obtained with direct pressure. The basilic vein just proximal to that PTFE band was dissected and controlled with Silastic loops. After ultrasound examination of the axilla, I made a transverse incision and exposed and controlled the basilic vein there with Silastic loops. I chose a 4-7 mm tapered [place] Propaten graft which, however, was 80 cm in length. I shortened the arterial bevelled end and actually used a site on that tapered segment which was about 5 mm in diameter. It was beveled and anastomosed end-to-side to the basilic vein just proximal to the PTFE band. OPERATIVE REPORT [id number] MICHAEL COON Prior to the anastomosis, the patient was heparinized with 3000 units of heparin given systemically and the vein was controlled with the Silastic loop and vascular clamp. After opening the vein, it was flushed proximally and distally with heparinized saline. The anastomosis was conducted with a running 6-0 Prolene and the anastomosis was treated with Evicel which provided for hemostatic suture line. The AV fistula was ligated above that new anastomosis with 2-0 silk and this resulted in excellent arterial inflow into the new graft. The graft was placed in a subcutaneous tunnel, which was curved laterally as much as possible before returning to the axilla. The basilic vein was opened and flushed proximally and distally with heparinized saline and the graft was shortened and beveled and anastomosed end of graft to side of vein with running 6-0 Prolene and that anastomotic suture line also treated with Evicel. The occluding clamps and loops were released and excellent flow was developed immediately within the new graft. The wounds were irrigated with Ancef and gentamicin solution. The vein had been treated off and on during the procedure with topical papaverine and both incisions were infiltrated and irrigated with 0.25% Marcaine without epinephrine. The patient's heparin was reversed with 15 mg of protamine and it was also given 20 mcg of DDAVP to achieve final hemostasis. The wounds were closed with interrupted inverted 3-0 Vicryl and running intracuticular 5-0 Monocryl and Dermabond glue. Dressings were Cavilon skin prep, Tegaderm, and calcium alginate silver impregnated sponge. The patient was awakened and taken to the recovery room. Blood loss during the operation was about 50 cc. None was replaced intraoperatively. All sponges, instruments, and needles were accounted for. No drain was used and no surgical specimen was submitted for histopathology. The patient will be discharged to home today assuming his pain control was adequate. He is not having any bleeding problems. He will be coming back to see me in my office on Friday of next week or Friday of next week. He can leave the initial dressings intact until then. He is given a prescription for Magness 5/325 one p.o. q.4 hours p.r.n. pain, 20 of these tablets with no refills. He is to continue all the same home medications. He is supposed to have been on Plavix 75 mg daily. We do not know how reliable he is with his medications and he thinks he has been off it for a while prior to this operation, but he is not sure. Hopefully, we can reconcile ALL of his medications with nephrology and I would like him to continue on Plavix 75 mg daily. He does have a problem with chronic hypotension and that alone makes him the increased risk for graft thrombosis. TRANSINT:[id number] Voice Confirmation ID: [id number] DOCUMENT ID: [id number] RICARDO GASPAR MD at 1421 CC: [id number] DICTATION DATE: 08/19/17 1239 ACETYLENE TORCH BURNER: 08/19/17 1434 [facility] 08/19/[address] [facility] [address] [place] [address]
== END 2017-08-19 17:55 | disposition home or self-care (01) ==
LOC: D.OPS 05:22
PROVIDERS: Surgery
DX: T82.590A Other mechanical complication of surgically created arteriovenous fistula, initial encounter (principal); N18.6 End stage renal disease; Z99.2 Dependence on renal dialysis; I95.89 Other hypotension; I69.359 Hemiplegia and hemiparesis following cerebral infarction affecting unspecified side; Z01.812 Encounter for preprocedural laboratory examination

== ENCOUNTER 2018-11-26 08:52 | Outpatient (CLI) | payer MEDICARE ==
[2018-11-26] VITALS (8 sets, daily range): BP systolic 100–144; BP diastolic 56–91; BMI 23.4; BMI 24.3
[~2018-11-26] VITALS: Ht 160 cm; Wt 60.9 kg
--- NOTE | ~2018-11-26 | HEMODYNAMI ---
PATIENT:MICHAEL COON MEDICAL RECORD: [id number] : 62 LOCATION:[facility] ADMISSION DATE: 11/26/18 Generatedon:11/26/201812:40 Patient name: MICHAEL COON Patient #: [id number] SSN: : 1960 Date of study: 11/26/2018 Page: Of Hemodynamic Procedure Report Patient Data Patient Demographics Procedure consent was obtained First Name: MICHAEL Gender: Male Last Name: JAYMIE : 1960 [facility] Initial: NALINI Age: 58 year(s) Patient #: [id number] Race: Black Additional ID: [id number] Contact details Address: [address] [place] [address] State: [place] City: [place] Zip code: [address] Past Medical History History of disease Date Diagnosis Comments Renal failure->Dialysis Allergies: No known allergies Admission Admission Data Admission Date: 11/26/2018 Admission Time: 8:52 Height (in.): 64 BSA: 1.62 (m2) Height (cm.): 162.56 BMI: 22.14 (kg/m2) Weight (lbs.): 129 Weight (kg.): 58.51 Lab Results Lab Result Date: 11/26/2018 Lab Result Time: 9:30 Biochemistry Name Units Result Min Max BUN mg/dl 19 --(----)*- 7 18 Creatinine mg/dl 7.8 --(----)-* 0.6 1.3 CBC Name Units Result Min Max Hematocrit % 44 --(*---)-- 42 54 Hemoglobin g/dl 13.5 --(*---)-- 13.5 17.5 Procedure Procedure Types Cath Procedure Diagnostic Procedure C [facility] w/Coronaries Sedation Charges Moderate Sedation up to 15 minutes PCI Procedure Coronary Stent Coronary Stent Initial Procedure Description Procedure Date Procedure Date: 11/26/2018 Procedure Start Time: 12:18 Procedure End Time: 12:38 Procedure Staff Name Function Gabriel Moore MD Performing Physician Kong Camara RT Monitor Karolina Howard RT Scrub Tanya Lo RN Nurse Procedure Data Cath Procedure Fluoroscopy Diagnostic fluoroscopy Total fluoroscopy Time: 3.8 time: 3.8 min min Diagnostic fluoroscopy Total fluoroscopy dose: 433 dose: 433 mGy mGy Contrast Material Contrast Material Type Amount (ml) Isovue 300 100 Entry Location Entry Primary Successful Side Size Upsize Upsize Entry Closure Succes sful Closure Location (Fr) 1 (Fr) 2 (Fr) Remarks Device Remarks Femoral Right 5 Fr 7 Fr Exoseal artery Short Estimated blood loss: 10 ml Diagnostic catheters Device Type Used For End Catheter Placement MULTIPACK Pigtail 5 Fr Procedure catheter MULTIPACK JL 4.0 5Fr Procedure catheter MULTIPACK 3DRC 5Fr Procedure catheter Procedure Complications No complications Procedure Medications Medication Administration Route Dosage 0.9% NaCl I.V. 100 ml/hr Oxygen etCO2 Nasal cannula 2 l/min Lidocaine 2% added to field 20 Heparin Flush Bag added to field 2 bags (1000units/500ml NS) Versed I.V. 2 mg Fentanyl 50 mcg Versed I.V. 2 mg Fentanyl I.V. 50 mcg Heparin Bolus I.V. 4000 units Integrilin (Bolus I.V. 5.6 ml 2mg/ml) Plavix P.O. 600 mg Hemodynamics Rest BSA: 1.62 (m2) HGB: 13.5 (g/dl) O2 Consumption: Estimated: 214.62 (ml/min) O2 Co nsumption indexed: Estimated:132.48 (ml/min/m) Heart Rate: 108 (bpm) Snapshots Pre Cath Intra NCS Post Cath Vital Signs Time Heart Resp SPO2 etCO2 NIBP (mmHg) Rhythm Pain Sedation Rate (ipm) (%) (mmHg) Status Level (bpm) 11:59:02 90 11 98 34.5 109/54(73) NSR 0 (11) 10(A) , No pain 12:03:28 92 13 98 35.2 133/103(119) NSR 0 (11) 10(A) , No pain 12:07:38 109 10 100 15.7 134/78(101) NSR 0 (11) 10(A) , No pain 12:16:33 129 12 100 36.7 150/69(117) NSR 0 (11) 10(A) , No pain 12:20:22 110 18 100 44.2 140/74(84) NSR 0 (11) 10(A) , No pain 12:24:15 123 15 100 45 77/53(73) NSR 0 (11) 9(A) , No pain 12:28:42 120 12 98 41.9 146/72(81) NSR 0 (11) 9(A) , No pain 12:33:08 124 14 100 46.5 153/69(116) NSR 0 (11) 10(A) , No pain 12:36:55 122 12 18.7 109/68(74) NSR 0 (11) 10(A) , No pain Medications Time Medication Route Dose Verified Delivered Reason Notes Effectiveness by by 11:59:07 0.9% NaCl I.V. 100 Gabriel Tanya used for ml/hr Teresa Lo tank insulator rubber 11:59:14 Oxygen etCO2 2 Gabriel Tanya used for Nasal l/min Teresa Lo procedure cannula RN 11:59:20 Lidocaine 2% added 20ml Gabriel Rios for local to vial Teresa Moroe MD anesthetic field 11:59:25 Heparin Flush added 2 Gabriel Gabriel used for Bag to bags Teresa Moore MD procedure (1000units/500ml field NS) 12:16:36 Versed I.V. 2 mg Gabriel Tanya for sedation Teresa Lo RN 12:16:41 Fentanyl 50 Gabriel Tanya mcg Teresa Lo RN 12:20:52 Versed I.V. 2 mg aGbriel Tanya for sedation Teresa Lo RN 12:20:58 Fentanyl I.V. 50 Gabriel Tanya for sedation mcg Teresa Lo RN 12:24:59 Heparin Bolus I.V. 4000 Gabriel Tanya for verif ied units Teresa Lo anticoagulation with Dr. JENNIFER Moore 12:25:06 Integrilin I.V. 5.6 Gabriel Tanya for waste d (Bolus 2mg/ml) ml Teresa Lo anticoagulation 4.4mL RN 12:27:33 Plavix P.O. 600 Gabriel Tanya for mg Teresa Lo antiplatelet RN therapy Procedure Log Time Note 11:38:33 Signed procedure consent form obtained from patient. 11:38:35 Time tracking: Regular hours (M-F 7:00 - 5:00) 11:38:38 Plan of Care:Hemodynamics will remain stable., Cardiac rhythm will remain stable., Comfort level will be maintained., Respiratory function will remain adequate., Patient/ family verbilizes understanding of procedure., Procedure tolerated without complication., Recovers from procedure without complications.. 11:38:41 Diagnostic Cath status Elective 11:40:40 H&P Date Dictated: 11/18/2018 Within 30 days and on chart., H&P Addendum completed by physician on day of procedure. (MUST COMPLETE FOR ALL OUTPATIENTS). 11:40:51 Patient allergic to No known allergies 11:41:06 Patient Height : 64 inches 11:41:10 Patient Weight : 129 lbs 11:42:46 Tanya Lo RN sent for patient. Start room use. 11:57:34 Vital chart was started 11:57:57 Patient received from Pre/Post Procedure Room to CCL 1 Alert and oriented. Tansferred to table in Supine position. 11:58:01 Warm blankets applied, and tamara hugger turned on for patient comfort. 11:58:04 Correct patient and procedure confirmed by team. 11:58:07 ECG and BP/O2 sat monitors applied to patient. 11:59:07 0.9% NaCl 100 ml/hr I.V. was administered by Tanya Lo RN; used for procedure; 11:59:14 Oxygen 2 l/min etCO2 Nasal cannula was administered by Tanya Lo RN; used for procedure; 11:59:20 Lidocaine 2% 20ml vial added to field was administered by Gabriel Moore MD; for local anesthetic; 11:59:25 Heparin Flush Bag (1000units/500ml NS) 2 bags added to field was administered by Gabriel Moore MD; used for procedure; 12:07:06 Baseline sample Acquired. 12:07:08 Rhythm: sinus tachycardia 12:07:11 Full Disclosure recording started 12:07:26 Pre-procedure instructions explained to patient. 12:07:27 Pre-op teaching completed and patient verbalized understanding. 12:07:28 Family in waiting room. 12:07:31 Patient NPO since Midnight. 12:07:33 Is the patient allergic to Iodine/contrast media? No. 12:07:42 Is patient on blood thinner?No 12:07:43 Patient diabetic? Yes. 12:07:44 If diabetic: On Metformin? Yes 12:07:48 Previous problem with sedation/anesthesia? No ? 12:08:00 Snore? Yes 12:08:02 Sleep apnea? No 12:08:02 Deviated septum? No 12:08:03 Opens mouth fully? Yes 12:08:04 Sticks out tongue? Yes 12:08:08 Airway obstruction? No ? 12:08:27 Dentures? Yes out 12:08:32 Pre procedure: right posterior tibial pulse Doppler 12:08:34 Patient pain scale 0/10 .. 12:08:41 IV patent on arrival in left hand with 0.9% NaCl at [facility]. 12:: Lab Result : BUN 19 mg/dl 12:: Lab Result : Creatinine 7.8 mg/dl 12:: Lab Result : Hemoglobin 13.5 g/dl 12:: Lab Result : Hematocrit 44 % 12:09:32 Lab results completed and on chart. 12:09:34 Right groin area was prepped with chlora-prep and draped in sterile fashion 12:09:35 Alarms reviewed by R. N. 12:09:36 Sharps counted by scrub and verified by R.N. 12:09:38 Use device set Femoral Dx 12:09:39 ACIST Syringe (86982) opened to sterile field. 12:09:39 Bag Decanter (2002S) opened to sterile field. 12:09:40 Medline Cath Pack ([id number]) opened to sterile field. 12:09:41 ACIST Hand Control (96884) opened to sterile field. 12:09:42 ACIST Manifold (61535) opened to sterile field. 12:09:42 Tegaderm 4 x 4 (1626W) opened to sterile field. 12:09:44 SHEATH 5FR [place] (ODG441) opened to sterile field. 12:09:45 DIAGNOSTIC Multipack 5Fr catheter set (WC4084) opened to sterile field. 12:09:46 DIAGNOSTIC WIRE .035 260cm J wire (894287) opened to sterile field. 12:11:23 Physician paged 12:15:28 Physician arrived 12:15:29 --------ALL STOP TIME OUT------ :15:29 Final Timeout: patient, procedure, and site verified with staff and physician. All members of the team are in agreement. 12:15:30 Right groin site verified by team. 12:15:34 Fire Safety Assessment: A--An alcohol-based skin anteseptic being used preoperatively., C--Open oxygen or nitrous oxide is being used., D--An ESU, laser, or fiber-optic light is being used. 12:15:36 Physical assessment completed. ASA score P 3 - A patient with severe systemic disease as per Gabriel Moore MD. 12:15:39 Sedation plan: IV Moderate Sedation Medication:Versed, Fentanyl 12:15:58 Zero performed for pressure channel P1 12:16:36 Versed 2 mg I.V. was administered by Tanya Lo RN; for sedation; 12:16:41 Fentanyl 50 mcg was administered by Tanya Lo RN; ; 12:18:45 Procedure started. 12:18:48 Local anesthetic to right femoral artery with Lidocaine 2% by Gabriel Moore MD.INITIAL ACCESS ONLY 12:19:05 A 5 Fr sheath was inserted into the Right Femoral artery 12:19:20 A MULTIPACK Pigtail 5 Fr catheter was advanced over the wire and used for Procedure. 12:20:00 LV gram done using MORA 12:20:03 Injector settings: Ml/sec: 10, Volume: 20, 12:20:05 LV hemodynamics recorded. 12:20:11 EF : 55 % 12:20:14 Catheter exchanged over wire. 12:20:18 A MULTIPACK JL 4.0 5Fr catheter was advanced over the wire and used for Procedure. 12:20:52 Versed 2 mg I.V. was administered by Tanya Lo RN; for sedation; 12:20:55 LCA angiography performed. 12:20:58 Fentanyl 50 mcg I.V. was administered by Tanya Lo RN; for sedation; 12:21:54 Catheter exchanged over wire. 12:21:59 A MULTIPACK 3DRC 5Fr catheter was advanced over the wire and used for Procedure. 12:22:29 RCA angiography performed. 12:24:34 Proceeding to intervention. 12:24:59 Heparin Bolus 4000 units I.V. was administered by Tanya Lo RN; for anticoagulation; verified with Dr. Moore 12:25:06 Integrilin (Bolus 2mg/ml) 5.6 ml I.V. was administered by Tanya Lo RN; for anticoagulation; wasted 4.4mL 12:: GUIDE 7FR EBU 4.0 SH catheter ([id number]) opened to sterile field. 12:: SHEATH 7FR [place] (BOW803) opened to sterile field. 12::49 INFLATOR Merit BasixCompak (TB6950) opened to sterile field. 12::50 CHOICE PT Extra Support 182cm wire ([id number]) opened to sterile field. 12:: Sheath upsized to a 7 Fr Short. 12:26:06 7 Fr ebu 4 sh guide catheter was inserted over the wire 12:: choice pt es wire advanced. 12:27:16 Wire advanced across lesion. 12::32 Inflate balloon Inflation number: 1 A EUPHORA 3.0 x 30 Balloon ([id number]) was prepped and advanced across the Ramus, then inflated to 17 BRANDEE for 0:10 (min:sec). 12::33 Plavix 600 mg P.O. was administered by Tanya Lo RN; for antiplatelet therapy; ::49 Inflation number: 2 The EUPHORA 3.0 x 30 Balloon ([id number]) was reinflated across the Ramus, to 21 BRANDEE for 0:10 (min:sec). 12::51 Balloon removed over the wire. 12:30: Place stent Inflation Number: 3 A ASA RX 2.5 x 38 stent ([id number]) was prepped and advanced across the Ramus. The stent was deployed at 15 BRANDEE for 0:10 (min:sec). 12:32:07 Stent catheter was removed intact over wire. 12:32:07 Wire removed. 12:32:08 Guide catheter removed. 12:32:15 EXOSEAL 7Fr (EX700) opened to sterile field. 12:32:23 Sheath removed intact; hemostasis achieved with Exoseal to the Right Femoral artery. 12:32:25 Procedure ended.(Physican Out) 12:35:22 Fluoroscopy time 03.80 minutes. 12:35:27 Flurop Dose total: 433 12:35:27 Fluoroscopy dose: 433 mGy 12:35:32 Contrast amount:Isovue 300 100ml. 12:35:33 Sharps counted by scrub and verified by R.N. 12:35:34 Insertion/operative site no bleeding no hematoma. 12:35:39 Post-op/insertion site Right Femoral artery dressed using a 4 x 4 and Tegaderm. 12:35:40 femstop applied due to pt excessive movement. 12:35:45 FEMSTOP Gold ([id number]) opened to sterile field. 12:35:51 Femstop placed over the right femoral artery at 139 mmHg. Hemostasis achieved. 12:35:58 Post-procedure physical assessment completed. ASA score P 3 - A patient with severe systemic disease as per Gabriel Moore MD. 12:36:03 Post procedure rhythm: unchanged. 12:36:05 Estimated blood loss: 10 ml 12:36:07 Post procedure instruction explained to patient.Patient verbalizes understanding. 12:36:07 Patient needs reinforcement of post procedure teaching. 12:36:17 Procedure type changed to Cath procedure, Diagnostic procedure, LHC, LHC w/Coronaries, Sedation Charges, Moderate Sedation up to 15 minutes, PCI procedure, Coronary Stent, Coronary Stent Initial 12:38:40 Procedure and supply charges have been captured, reviewed, submitted and are correct. 12:38:42 Procedure Complication : No complications 12:38:45 Vital chart was stopped 12:38:45 See physician's report for complete and final results. 12:38:47 Report given to PCU. 12:38:49 Patient transfered to PCU with Stretcher. 12:38:50 Procedure ended. 12:38:50 Full Disclosure recording stopped 12:38:56 End room use (Document Last) Intervention Summary Intervention Notes Time ActionType Lesion and Equipment Used Action# Pressure Duration Attributes 12:27:32 Inflate Ramus EUPHORA 3.0 x 1 17 00:10 balloon 30 Balloon ([id number]) 12:27:49 Reinflate Ramus EUPHORA 3.0 x 2 21 00:10 balloon 30 Balloon ([id number]) 12:30:01 Place stent Ramus ASA RX 2.5 x 3 15 00:10 38 stent ([id number]) Device Usage Item Name Manufacture Quantity Catalog Number Hospital Part Current M inimal Lot# / Charge Number Stock Stock Serial# Code ACIST Syringe Acist 1 70481 097402 610450 308352 2 0 (32406) [employer] Bag Decanter Microtek 1 041222 41174 178386 5 (2001S) Medical Inc. Medline Cath Medline 1 [id number] 034533 82214 600691 5 Pack ([id number]) ACIST Hand Acist 1 99331 969923 689981 451376 5 Control Medical (60372) Systems Inc ACIST Manifold Acist 1 35720 849897 374913 790073 5 (05196) Medical Systems Inc Tegaderm 4 x 4 3M 1 1626W 124667 038227 733352 5 (1626W) SHEATH 5FR Terumo 1 YTI101 395238 602277 885634 5 [place] (VIB643) DIAGNOSTIC Cardinal 1 BN7705 543639 72400 165525 3 0 Multipack 5Fr Health catheter set (MT6743) DIAGNOSTIC St Vin 1 304161 324215 372093 926886 3 0 WIRE .035 260cm J wire (552369) MULTIPACK Cardinal 1 004232 5 Pigtail 5 Fr Health catheter MULTIPACK JL Cardinal 1 047484 5 4.0 5Fr Health catheter MULTIPACK 3DRC Cardinal 1 811894 5 5Fr catheter Health GUIDE 7FR EBU Medtronic 1 [id number] 924754 519131 179680 0 4.0 SH catheter ([id number]) SHEATH 7FR Terumo 1 HHU985 292892 820523 991632 5 [place] (PXZ203) INFLATOR Merit Merit 1 CF6144 775261 597497 783062 1 5 Instant Information ([id number]) CHOICE PT [place] 1 [id number] 305093 773903 279444 5 Extra Support Scientific 182cm wire ([id number]) EUPHORA 3.0 x Medtronic 1 [id number] 704538 498277 048258 5 [id number] 30 Balloon ([id number]) ASA RX 2.5 x Medtronic 1 [id number] 990314 6540675 570993 5 [id number] 38 stent ([id number]) EXOSEAL 7Fr Cardinal 1 EX700 777925 377222 640075 5 (EX700) Health FEMSTOP Gold St Vin 1 G04111 396369 295483 721645 5 ([id number]) Signature Audit [place] Stage Time Signature Unsigned Intra-Procedure 11/26/2018 Kong Camara 12:40:30 PM RT(R) Signatures Monitor : Kong Camara RT Signature : Date : Time : [address] [place] [address]
--- NOTE | ~2018-11-26 | HEMODYNAMI ---
PATIENT:MICHAEL COON MEDICAL RECORD: [id number] : 62 LOC[facility] [id number] [id number] ADMISSION DATE: 11/26/18 Generatedon:11/27/20189:51 Patient name: MICHAEL COON Patient #: [id number] SSN: : 1960 Date of study: 11/27/2018 Page: Of Hemodynamic Procedure Report Patient Data Patient Demographics Procedure consent was obtained First Name: MICHAEL Gender: Male Last Name: JAYMIE : 1960 [facility] Initial: NALINI Age: 58 year(s) Patient #: [id number] Race: Black Additional ID: [id number] Contact details Address: [address] [place] [address] State: [place] City: [place] Zip code: [address] Past Medical History History of disease Date Diagnosis Comments Renal failure->Dialysis Allergies: No known allergies Admission Admission Data Admission Date: 11/26/2018 Admission Time: 8:52 Room #: [facility] Height (in.): 64 BSA: 1.62 (m2) Height (cm.): 162.56 BMI: 22.14 (kg/m2) Weight (lbs.): 129 Weight (kg.): 58.51 Lab Results Lab Result Date: 11/26/2018 Lab Result Time: 9:30 Biochemistry Name Units Result Min Max BUN mg/dl 19 --(----)*- 7 18 Creatinine mg/dl 7.8 --(----)-* 0.6 1.3 CBC Name Units Result Min Max Hematocrit % 44 --(*---)-- 42 54 Hemoglobin g/dl 13.5 --(*---)-- 13.5 17.5 Procedure Procedure Types Cath Procedure PCI Procedure Coronary Stent Coronary Stent Initial Procedure Description Procedure Date Procedure Date: 11/27/2018 Procedure Start Time: 9:28 Procedure End Time: 9:49 Procedure Staff Name Function Gabriel Moore MD Performing Physician Karolina Howard RT Monitor Tanya Lo RN Nurse Chadd Pradhan RT Singe Winder Kong Camara RT Scrub Procedure Data Cath Procedure Fluoroscopy Diagnostic fluoroscopy Total fluoroscopy Time: 7.1 time: 7.1 min min Diagnostic fluoroscopy Total fluoroscopy dose: 495 dose: 495 mGy mGy Contrast Material Contrast Material Type Amount (ml) Isovue 300 89 Entry Location Entry Primary Successful Side Size Upsize Upsize Entry Closure Succes sful Closure Location (Fr) 1 (Fr) 2 (Fr) Remarks Device Remarks Femoral Left 7 Fr Exoseal artery Short Estimated blood loss: 10 ml Procedure Complications No complications Procedure Medications Medication Administration Route Dosage 0.9% NaCl I.V. 100 ml/hr Oxygen etCO2 Nasal cannula 2 l/min Lidocaine 2% added to field 20 Heparin Flush Bag added to field 2 bags (1000units/500ml NS) Refer to Anesthesia Notes for Sedation Medications Heparin Bolus I.V. 4000 units Hemodynamics Rest BSA: 1.62 (m2) O2 Consumption: Estimated: 206.25 (ml/min) O2 Consumption indexed : Estimated:127.31 (ml/min/m) Heart Rate: 94 (bpm) Snapshots Pre Cath Intra NCS Post Cath Vital Signs Time Heart Resp SPO2 etCO2 NIBP (mmHg) Rhythm Pain Sedation Rate (ipm) (%) (mmHg) Status Level (bpm) 9:07:45 91 13 100 33.6 161/32(88) NSR 0 (11) 10(A) , No pain 9:15:30 98 18 99 37.6 124/88(99) NSR 0 (11) 10(A) , No pain 9:19:33 102 12 98 0 118/89(103) NSR 0 (11) 10(A) , No pain 9:25:54 99 13 98 36 Time NSR 0 (11) 7(A) Exceeded , No pain 9:29:27 100 12 98 35.9 Time NSR 0 (11) 7(A) Exceeded , No pain 9:31:53 98 11 98 32.9 73/38(57) NSR 0 (11) 7(A) , No pain 9:37:04 88 14 99 31.4 90/26(44) NSR 0 (11) 7(A) , No pain 9:43:17 97 16 98 40.6 123/43(114) NSR 0 (11) 10(A) , No pain 9:48:16 98 13 99 13.7 Measuring NSR 0 (11) 10(A) , No pain 9:49:40 97 21 98 0 Time NSR 0 (11) 10(A) Exceeded , No pain Medications Time Medication Route Dose Verified Delivered Reason Notes Effectiveness by by 9:06:28 0.9% NaCl I.V. 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 4000 Gabriel Tanya for verifi ed units Teresa Lo anticoagulation with Dr. JENNIFER Moore Procedure Log Time Note 8:38:28 Patient Height : 64 inches 8:38:28 Patient Weight : 129 lbs 8:38:42 Signed procedure consent form obtained from patient. 8:38:44 Diagnostic Cath status Elective 8:38:45 Time tracking: Regular hours (M-F 7:00 - 5:00) 8:38:51 Plan of Care:Hemodynamics will remain stable., Cardiac rhythm will remain stable., Comfort level will be maintained., Respiratory function will remain adequate., Patient/ family verbilizes understanding of procedure., Procedure tolerated without complication., Recovers from procedure without complications.. 8:40:10 Patient allergic to No known allergies 8:45:40 Chadd Sumazin RT(R) sent for patient. Start room use. 8:55:15 Patient received from Med II to CCL 1 Alert and oriented. Tansferred to table in Supine position. 8:55:16 Warm blankets applied, and tamara hugger turned on for patient comfort. 8:55:16 Correct patient and procedure confirmed by team. 8:55:16 ECG and BP/O2 sat monitors applied to patient. 9:06:13 Vital chart was started 9:06:28 0.9% NaCl 100 ml/hr I.V. was administered by Tanya Lo RN; used for procedure; 9:06:34 Oxygen 2 l/min etCO2 Nasal cannula was administered by Tanya Lo RN; used for procedure; 9:06:41 Lidocaine 2% 20ml vial added to field was administered by Gabriel Moore MD; for local anesthetic; 9:06:46 Heparin Flush Bag (1000units/500ml NS) 2 bags added to field was administered by Gabriel Moore MD; used for procedure; 9:06:51 Refer to Anesthesia Notes for Sedation Medications was administered by Gabriel Moore MD; ; 9:12:08 Baseline sample Acquired. 9:12:16 Rhythm: sinus rhythm 9:12:16 Full Disclosure recording started 9:12:17 Pre-procedure instructions explained to patient. 9:12:17 Pre-op teaching completed and patient verbalized understanding. 9:12:19 Family unavailable. 9:12:20 Patient NPO since Midnight. 9:12:23 Is patient on blood thinner?Yes 9:12:26 ACC The patient was administered the following blood thiners within the last 24 hours: ACCPlavix 9:12:51 Patient diabetic? Yes. 9:12:52 If diabetic: On Metformin? Yes 9:12:59 Previous problem with sedation/anesthesia? No ? 9:13:13 Snore? Yes 9:13:14 Sleep apnea? No 9:13:16 Deviated septum? No 9:13:20 Opens mouth fully? Yes 9:13:21 Sticks out tongue? Yes 9:13:26 Airway obstruction? No ? 9:13:35 Dentures? Yes OUT 9:13:45 Pre procedure: left dorsailis pedis pulse Doppler 9:13:52 Patient pain scale 0/10 ?. 9:13:59 IV patent on arrival in left hand with 0.9% NaCl at [facility]. 9:14:03 Lab results completed and on chart. 9:14:06 Left groin area was prepped with chlora-prep and draped in sterile fashion 9:14:07 Alarms reviewed by R. N. 9:14:07 Sharps counted by scrub and verified by R.N. 9:15:32 Use device set CATH PACK 9:15:33 ACIST Syringe (09614) opened to sterile field. 9:15:33 ACIST Hand Control (46553) opened to sterile field. 9:15:33 ACIST Manifold (50224) opened to sterile field. 9:15:34 Medline Cath Pack ([id number]) opened to sterile field. 9:15:34 Bag Decanter (2002) opened to sterile field. 9:15:35 DIAGNOSTIC WIRE .035 260cm J wire (951010) opened to sterile field. 9:15:51 SHEATH 6FR Keldron (LSV082) opened to sterile field. 9:15:51 INFLATOR Merit BasixCompak (EM8703) opened to sterile field. 9:15:51 CHOICE PT Extra Support 182cm wire ([id number]) opened to sterile field. 9:18:23 Zero performed for pressure channel P1 9:22:49 --------ALL STOP TIME OUT------ 9:22:50 Final Timeout: patient, procedure, and site verified with staff and physician. All members of the team are in agreement. 9:22:54 Left groin site verified by team. 9:22:57 Fire Safety Assessment: A--An alcohol-based skin anteseptic being used preoperatively., C--Open oxygen or nitrous oxide is being used., D--An ESU, laser, or fiber-optic light is being used. 9:23:02 Physical assessment completed. ASA score P 3 - A patient with severe systemic disease as per Gabriel Moore MD. 9:23:05 Sedation plan: TIVA Medication:Propofol 9:28:21 Procedure started. 9:28:45 Local anesthetic to left femerol artery with Lidocaine 2% by Gabriel Moore MD.INITIAL ACCESS ONLY 9:30:13 A 7 Fr Short sheath was inserted into the Left Femoral artery 9:30:33 Heparin Bolus 4000 units I.V. was administered by Tanya Lo RN; for anticoagulation; verified with Dr. Moore 9:30:48 7 Fr EBU 4 SH guide catheter was inserted over the wire 9:32:01 CHOICE ES 182 wire advanced. 9:32:44 Wire advanced across lesion. 9:33:39 Inflate balloon Inflation number: 1 A EUPHORA 2.5 x 15 Balloon ([id number]) was prepped and advanced across the Mid LAD, then inflated to 15 BRANDEE for 0:10 (min:sec). 9:34:03 Inflation number: 2 The EUPHORA 2.5 x 15 Balloon ([id number]) was reinflated across the Mid LAD, to 19 BRANDEE for 0:10 (min:sec). 9:36:26 Inflation number: 3 The EUPHORA 2.5 x 15 Balloon ([id number]) was reinflated across the Mid LAD, to 17 BRANDEE for 0:10 (min:sec). 9:36:58 Inflation number: 4 The EUPHORA 2.5 x 15 Balloon ([id number]) was reinflated across the Mid LAD, to 12 BRANDEE for 0:00 (min:sec). 9:37:24 Balloon removed over the wire. 9:38:47 Place stent Inflation Number: 5 A INTEGRITY RX 2.5 x 12 stent ([id number]) was prepped and advanced across the Mid LAD. The stent was deployed at 19 BRANDEE for 0:00 (min:sec). 9:39:02 Stent catheter was removed intact over wire. 9:41:46 The EUPHORA 2.0 x 15 Balloon ([id number]) was advanced and then removed because of failure to cross lesion 9:41:48 Balloon removed over the wire. 9:43:34 Wire removed. 9:43:35 Guide catheter removed. 9:43:44 EXOSEAL 7Fr (EX700) opened to sterile field. 9:44:45 Sheath removed intact; hemostasis achieved with Exoseal to the Left Femoral artery. 9:44:47 Procedure ended.(Physican Out) 9:45:46 Fluoroscopy time 07.10 minutes. 9:45:50 Flurop Dose total: 495 9:45:50 Fluoroscopy dose: 495 mGy 9:45:54 Contrast amount:Isovue 300 89ml. 9:45:55 Sharps counted by scrub and verified by R.N. 9:46:02 Post-procedure physical assessment completed. ASA score P 3 - A patient with severe systemic disease as per Gabriel Moore MD. 9:46:05 Post procedure rhythm: sinus rhythm 9:46:07 Estimated blood loss: 10 ml 9:46:09 Post procedure instruction explained to patient.Patient verbalizes understanding. 9:46:10 Patient needs reinforcement of post procedure teaching. 9:47:02 Femstop placed over the left femerol artery at 140 mmHg. Hemostasis achieved. 9:48:23 Procedure and supply charges have been captured, reviewed, submitted and are correct. 9:48:26 Procedure Complication : No complications 9:49:36 Vital chart was stopped 9:49:36 See physician's report for complete and final results. 9:49:39 Report given to [facility]. 9:49:42 Patient transfered to [facility] with Bed. 9:49:45 Procedure ended. 9:49:45 Full Disclosure recording stopped 9:49:49 End room use (Document Last) Intervention Summary Intervention Notes Time ActionType Lesion and Equipment Action# Pressure Duration Attributes Used 9:33:39 Inflate Mid LAD EUPHORA 2.5 1 15 00:10 balloon x 15 Balloon ([id number]) 9:34:03 Reinflate Mid LAD EUPHORA 2.5 2 19 00:10 balloon x 15 Balloon ([id number]) 9:36:26 Reinflate Mid LAD EUPHORA 2.5 3 17 00:10 balloon x 15 Balloon ([id number]) 9:36:58 Reinflate Mid LAD EUPHORA 2.5 4 12 00:00 balloon x 15 Balloon ([id number]) 9:38:47 Place stent Mid LAD INTEGRITY RX 5 19 00:00 2.5 x 12 stent ([id number]) 9:41:46 Discard EUPHORA 2.0 Balloon x 15 Balloon ([id number]) Device Usage Item Name Manufacture Quantity Catalog Number Hospital Part Current [facility] Lot# / Charge Number Stock Stock Serial# Code ACIST Acist 1 01190 307594 403094 211992 20 Syringe Medical (91235) Systems Inc ACIST Hand Acist 1 26580 807874 247331 399417 5 Control Medical (63345) Systems Inc ACIST Acist 1 13125 356127 732173 906586 5 Manifold Medical (69016) Systems Inc Medline Cath Medline 1 [id number] 402849 95300 534495 5 Pack ([id number]) Bag Decanter Microtek 1 044623 47547 245564 5 () Medical Inc. DIAGNOSTIC St Vin 1 958699 228890 417862 023939 30 WIRE .035 260cm J wire (371070) SHEATH 6FR Terumo 1 ZXF794 839669 784405 580825 40 Keldron (BYJ832) INFLATOR Merit 1 JN3773 429493 577993 248101 15 [facility] Medical BasixCompak (IP1001) CHOICE PT [place] 1 [id number] 023233 537361 998128 5 Extra Scientific Support 182cm wire ([id number]) EUPHORA 2.5 Medtronic 1 [id number] 047660 647358 094572 5 [id number] x 15 Balloon ([id number]) INTEGRITY RX Medtronic 1 [id number] 668076 080533 815939 5 [id number] 2.5 x 12 stent ([id number]) EUPHORA 2.0 Medtronic 1 [id number] 474676 893426 987981 5 [id number] x 15 Balloon ([id number]) EXOSEAL 7Fr Cardinal 1 EX700 179256 538764 195599 5 (EX700) Health Signature Audit [place] Stage Time Signature Unsigned Intra-Procedure 11/27/2018 Karolina Howard 9:51:31 AM RT(R) Signatures Monitor : Karolina Howard Signature : RT Date : Time : [place] [address] [place] [address]
[~2018-11-26 08:52] MED LIST changes: +RENA-VITE TABL0.8 MG PO; +RENAGEL800 MG PO
[2018-11-26 09:40] LABS: HEMOGLOBIN 13.5 g/dL (13.5-17.5); LYMPHOCYTES 25.3 % (15-50); MCH 23.4 pg (26.0-34.0); MCHC 30.7 g/dL (31.0-37.0); MCV 76.1 fL (80.0-100.0); MEAN PLATELET VOLUME 9.4 fL (7.4-10.4); NEUTROPHILS 70.1 % (40-80); PLATELET COUNT 191 10x3/uL (130-400); RBC 5.78 10x6/uL (4.20-6.10); RDW 17.6 % (11.5-14.5); WBC 6.5 10x3/uL (4.8-10.8)
[2018-11-26 09:49] LABS: ANION GAP 17.3 mmol/L (8-16); CALCIUM 10.1 mg/dL (8.5-10.1); CARBON DIOXIDE 27.6 mmol/L (21.0-32.0); CREATININE - SERUM 7.8 mg/dL (0.6-1.3); POTASSIUM - SERUM 3.9 mmol/L (3.5-5.1)
--- NOTE | 2018-11-26 13:26 | NUR ---
PT ARRIVED FROM PHOSPHORUS PROCESSING SUPERVISOR VERY RESTLESS AND AGITATED. PT WILL AWAKE EASY AND CAN BE REDIRECTED TO LAY FALT BUT THEN WITHIN 20SECS PT IS BACK TYRING TO SIT UP AND MOVE HIS LEGS. PT RESPONDS TO CUING BUT CLEARLY IS NOT DOING THIS INTENTIONALLY IT APPEARS TO BE RESTLESS LEGS OR JERKING. WILL DISCUSS WITH RENAL CASINO OPERATIONS SUPERVISOR ON FLOOR ABOUT ANYTHING TO HELP RELAX HIM FOR HIS OWN SAFETY OF BLEEDING FROM SITE. PT HAS FEMSTOP IN PLACE TO R.GROIN R/T HIM BEING SO RESTLESS TO HELP PREVENT ANY HEMATOMA OR BLEEDING. VSS AND BEING MONITERED. RR NONLABORED ON RA. APPLIED TELEMETRY ORDERED PT RUNNING SINUS TACHYCARDIC @104BPM. PERIPHERAL PULSES INTACT. NO FAMILY PRESENT. WILL STAY AT BEDSIDE AND TRY TO KEEP PT CALM AND FLAT.
--- NOTE | 2018-11-26 14:15 | NUR ---
PT PULLING OFF HIS TELEMETRY AND FEMSTOP AND VERY AGITATED WITH EYES CLOSED AND MAKING SNORING SOUNDS. UNSURE IF HE IS ALWAYS THIS RESTLESS IN HIS SLEEP HOWEVER IM NOT ABLE TO KEEP HIM STILL. REMOVED FEMSTOP TO TRY AND AVOID HIM PULLING AT IT. PLACED GUAZE AND TEGADERM OVER SITE. ONE DIME SIZE HEMATOMA FELT BUT DOESNT APPEAR TO BE GROWING, WILL CTM CLOSELY. PERIPHERAL PULSES INTACT AND NO S/S OF BLEEDING NOTED. VITALS STABLE EXCEPT HR NOW TACHYCARDIC @130BPM FROM ALL PTS EXCESSIVE MOVING AND CHOAS. PULSE OX 100% ON RA. WILL CTM AT BEDSIDE.
--- NOTE | 2018-11-26 14:24 | NUR ---
PT REMAINS JERKING AND VERY RESTLESS. CALLED IN HE WAS ON FLOOR HE LOOKED OVER PT AND THINKS THE ATIVAN MAY HAVE MADE IT WORSE. WILL ALLOW IT TO WEAR OFF AND JUST MONITER PT CLOSELY.
--- NOTE | 2018-11-26 15:14 | NUR ---
PT THROWING UP AND PULLING AT EVERYTHING. PT VERY RESTLESS AND NOW THROW UP IS BLOODY. NOTIFIED RENAL ON FLOOR AND THEY LOOKED OVER PT. WILL TRY TO REFRAIN FROM SEDATING HIM ANY FURTHER. PT CLAMMY AND DIAPHORETIC CHECKED SUGAR AND ITS 106. WILL CONTINUE TO MONITER AT BEDSIDE. PT IS KIND OF LAYING FLAT HOWEVER R.GROIN REMAINS SOFT WITH DRSG CDI. WILL CTM.
--- NOTE | 2018-11-26 15:40 | NUR ---
PAGED R/T HEART RATE STAYING [place] THE 150S-160S AND PT SO AGITATED AND THREW UP A LITTLE BLOOD AGAIN. NEW ORDERS OBTAINED. WILL REMAIN AT BEDSIDE MONITERING CLOSELY.
[2018-11-26 16:08] LABS: HEMATOCRIT 41.2 % (42.0-54.0); HEMOGLOBIN 12.9 g/dL (13.5-17.5)
--- NOTE | 2018-11-26 16:10 | NUR ---
MANAGER RESEARCH DEVELOPMENT HERE FOR STAT H&H HAD TO ASSIST HER HOLDING HIS ARM HE REMAINS EXTREMELY AGITATED AND RESTLESS. ROWENA DRSG IS CDI AND SOFT. NO S/S OF BLEEDING. VSS WITH EXCEPTION OF HR BEING TACHYCARDIC. WILL CTM AT BEDSIDE.
--- NOTE | 2018-11-26 17:10 | OP ---
PATIENT NAME: MICHAEL COON MEDICAL RECORD: [id number] :62 LOCATION:D.M2 D.2124 ADMISSION DATE: SURGEON: JENNIFER FOY MD DATE OF OPERATION: 11/26/2018 PROCEDURES: 1. PTCA stent left circumflex. 2. Left heart catheterization. 3. Selective coronary angiography. 4. Left ventriculogram. INDICATION: Unstable angina and coronary artery disease. PROCEDURE IN DETAIL: After informed consent was obtained and after a detailed description of risks, benefits as well as alternative therapies, the patient elected to proceed with angiogram and angioplasty. The right femoral area was prepped and draped in normal sterile fashion. Right femoral artery was cannulated via modified Seldinger technique with placement of 7-[place] sheath. All catheters exchanged through this sheath. FINDINGS: The left ventriculogram was performed in standard 30-degree MORA view reveals preserved cardiac wall motion throughout all segments. Overall ejection fraction estimated at 55%. SELECTIVE CORONARY ANGIOGRAPHY: 1. Left main showed no significant angiographic disease. 2. Left anterior descending has a 99% stenosis in the mid vessel. 3. The left circumflex has previously placed stents with 99% stenosis in the mid vessel. 4. Right coronary has mild irregularities, but no flow-limiting stenosis. PTCA STENT OF THE LEFT CIRCUMFLEX: The stent used was a 2.5 x 38 mm [place]. Result was 0% residual stenosis. OVERALL IMPRESSION: Successful percutaneous transluminal coronary angioplasty stent of the left circumflex going from 99% initial stenosis to 0% residual. PLAN: For PTCA stent of the LAD in the near future. TRANSINT:[id number] Voice Confirmation ID: [id number] DOCUMENT ID: [id number] JENNIFER FOY MD at 1710 CC: [id number] DICTATION DATE: 11/26/18 1236 PHYSICAL PLANT MANAGER: 11/26/18 1311 [facility] [address] [place] [address]
--- NOTE | 2018-11-26 17:18 | NUR ---
PTS H&H NORMAL. PT FINALLY BECOMING TO REST A LITTLE AND BE MORE CALM. HR DOWN TO 140 STILL SINUS TACHYCARDIC. R.GROIN DRSG CDI NO S/S OF BLEEDING OR HEMATOMA NOTED, SOFT TO THE TOUCH. PULLED PT UP IN BED AND BUILT IN BED ALARM ON. WILL MONITER CLOSELY.
--- NOTE | 2018-11-26 19:17 | NUR ---
RESUMING PATIENT CARE. PATIENT RESTING COMFORTABLY IN BED, EYES CLOSED. RESPIRATIONS ARE EVEN AND UNLABORED. NO S/S OF DISTRESS. CALL LIGHT WITHIN REACH. PATIENT BOARD UPDATED. WILL CPOC.
[2018-11-27] VITALS: BP 150/81
--- NOTE | 2018-11-27 01:01 | NUR ---
PATIENT RESTING COMFORTABLY IN BED. RESPIRATIONS ARE EVEN AND UNLABORED. NO S/S OF DISTRESS. NO C/O PAIN. CALL LIGHT WITHIN REACH. WILL CPOC.
--- NOTE | 2018-11-27 02:30 | NUR ---
PATIENT ALERT BUT DISORIENTED TO TIME. PATIENT ASKING WHY HE HASN'T HAD SURGERY YET? EXPLAINED TO HIM THAT HE HAD A PROCEDURE ALREADY AND SHOWED HIM HIS RIGHT GROIN. HE STILL DID NOT BELIEVE HE HAD ANYTHING DONE. I EXPLAINED THAT THIS MORNING HE WITH BE HAVING A HEART CATH. WILL CONTINUE TO ORIENTED PATIENT.
[2018-11-27 04:00] VITALS: BP 119/76
--- NOTE | 2018-11-27 07:10 | NUR ---
REPORT RECEIVED FROM EXPENDITURE REQUISITION CLERK. PATIENT LAYING IN BED WITH EYES CLOSED AND BREATHING EVENLY. WILL CONTINUE WITH PLAN OF CARE. SR UP X 2 BED IN LOW POSTION AND CALL LIGHT IN REACH.
[2018-11-27 08:15] VITALS: BP 80/23
--- NOTE | 2018-11-27 08:45 | NUR ---
PREOPED PATIENT PER CERTIFIED PROCEDURAL CODER ORDER. VS ARE GOOD. PATIENT DENEIS ANY NEEDS OR PAIN. WILL CONTINUE TO MONITOR.
[2018-11-27 10:16] VITALS: Ht 160 cm; Wt 60.9 kg
--- NOTE | 2018-11-27 10:20 | NUR ---
PATIENT TO AUDIO VISUAL DIRECTOR. VS ARE GOOD AND PATIENT IS STABLE.
[2018-11-27 11:41] VITALS: BP 158/54
--- NOTE | 2018-11-27 11:45 | NUR ---
PATIENT RETURNED FROM TOOL REPAIRER BENCH.STENT X 2 TO LAD. FEMSTOP TO LEFT GROIN INTACT. NO BLEEDING, BRUISING OR HEMATOMA NOTED. PERIPHERAL BILATERAL PULSES NOTED. PATIENT IS SLEEPY BUT AROUSES EASILY TO VOICE. PATIENT IS ATTEMPTING TO SIT UP. INSTRUCTED PATIENT TO REMAIN STILL AND LAY FLAT. PATIENT VERBALIZES UNDERSTANDING AND REMAINS FLAT AND STILL. PATIENT DENIES ANY NEEDS OR PAIN. WILL CONTINUE TO MONITOR CLOSELY. SR UP X 2 CALL LIGHT IN REACH AND BED IN LOW POSTION.
--- NOTE | 2018-11-27 12:01 | NUR ---
PATIENT IN BED AND ROLLED ONTO LEFT SIDE WITH EYES CLOSED AND BREATHING EVENLY. AWOKE PATIENT AND ADMONISHED PATIENT TO REMAIN FLAT ON BACK. PATIENT VERBALIZED UNDERSTANDING. WILL CONTINUE TO MONITOR CLOSELY.
--- NOTE | 2018-11-27 13:00 | NUR ---
PATIENT TO DIALYSIS. LEFT GROIN FEMSTOP INTACT. NO SIGNS OF BLEEDING, BRUISING OR HEMATOMA NOTED. BILTERAL PERIPHERAL PULSES NOTED. VS ARE GOOD AND PATIENT IS STABLE. PATIENT TRANSPORTED IN BED VIA HOSPITAL PERSONNEL.
--- NOTE | 2018-11-27 15:50 | NUR ---
PATIENT RETURNED FROM DIALYSIS. PATIENT IS STABLE AND VS ARE GOOD. RT GROIN TR BAND REMOVED. DRSG C/D/I. WILL CONTINUE TO MONITOR.
--- NOTE | 2018-11-27 17:34 | NUR ---
DISCHARGE INSTRUCTIONS GIVEN TO PATIENT VERBALLY AND WRITTEN. PATIENT VERBALIZED UNDERSTANDING AND SIGNED PAPERS. PATIENT IS STABLE AND VS ARE GOOD. RT AND LEFT GROIN POST CATH DRSG C/D/I. NO BLEEDING, BRUISING OR HEMATOMA NOTED. LT FOREARM IV CATH REMOVED WITHOUT DIFFICULTY. PATIENT TO FRONT DOOR VIA WC AND HOPSITAL PERSONNEL TO PRIVATE VEHICLE AND HOME FOR SELF CARE.
--- NOTE | 2018-12-01 10:45 | DS ---
PATIENT:MICHAEL COON :62 MEDICAL RECORD: [id number] DISCHARGE SUMMARY ADMISSION DATE: 11/26/18 DISCHARGE DATE: 11/27/18 DIAGNOSES: 1. Angina. 2. Coronary artery disease. 3. Percutaneous transluminal coronary angioplasty stent of left circumflex and left anterior descending this admission. 4. End-stage renal failure, on dialysis. 5. Hypertension. 6. Hyperlipidemia. HOSPITAL COURSE: Mr. Coon presents with anginal symptomatology, found to have significant disease of the LAD and circumflex, underwent successful PTCA stent of both territories, was discharged home with the addition of aspirin and Plavix to his medical regimen. We will follow up with [facility] in 1 month. TRANSINT:[id number] Voice Confirmation ID: [id number] DOCUMENT ID: [id number] JENNIFER FOY MD at 1045 CC: [id number] DICTATION DATE: 11/27/18 0949 ELECTRICAL SUBCONTRACTOR: 11/27/18 2347 [facility] CLI 11/27/[address] [address]
--- NOTE | 2018-12-01 10:45 | OP ---
PATIENT NAME: MICHAEL COON MEDICAL RECORD: [id number] :62 LOCATION:D.CAT ADMISSION DATE: SURGEON: JENNIFER FOY MD DATE OF OPERATION: 11/27/2018 PROCEDURES: 1. PTCA stent LAD. 2. Selective coronary angiography. INDICATION: Angina and coronary artery disease. PROCEDURE IN DETAIL: After informed consent was obtained and after a detailed description of the risks, benefits as well as alternative therapies, the patient elected to proceed with angiogram and angioplasty. The left femoral area was prepped and draped in normal sterile fashion. Left femoral artery was cannulated via modified Seldinger technique with placement of 7-Yoruba sheath. All catheters exchanged through this sheath. FINDINGS: The left anterior descending has 2 areas of 95% stenosis. This is a very heavily calcified vessel and very tortuous. We were able to address the first area with a 2.5 x 12 mm Integrity stent. The second area could not even be reached by a balloon secondary to calcification and tortuosity. OVERALL IMPRESSION: Successful percutaneous transluminal coronary angioplasty stent of the left anterior descending going from 95% initial stenosis to 0% residual. There is a second lesion in the mid distal LAD that cannot be approached. This ought to be treated medically. TRANSINT:[id number] Voice Confirmation ID: [id number] DOCUMENT ID: [id number] JENNIFER FOY MD at 1045 CC: [id number] DICTATION DATE: 11/27/18 0950 GEOTHERMAL OPERATIONS ENGINEER: 11/27/18 1134 [facility] CLI 11/27/18 [place] [id number]
== END 2018-11-27 18:00 ==
LOC: D.M2 08:52 → D.CATH 08:52 → D.M2 13:10 → D.CATH 11-27 18:00
PROVIDERS: Internal Medicine Interventional Cardiology
DX: I25.110 Atherosclerotic heart disease of native coronary artery with unstable angina pectoris (principal); Z01.812 Encounter for preprocedural laboratory examination
CPT/HCPCS: 93458; C9600; 92928

== ENCOUNTER → 2020-06-14 19:33 | Outpatient (CLI) | payer MEDICARE ==
[2018-11-27 10:16] VITALS: BMI 23.7
== END | disposition home or self-care (01) ==
LOC: D.LABREF 19:33
PROVIDERS: ATTEND Podiatrist Foot & Ankle Surgery
DX: M86.172 Other acute osteomyelitis, left ankle and foot (principal)